=== PATIENT | female | born 1950 | race Caucasian/White ===

== ENCOUNTER 2018-07-23 16:36 | Emergency (ER) | payer MEDICARE, MEDICAID ==
--- OUTSIDE RECORDS SUMMARY | 2018-07-23 18:13 | XMS REPORT ---
:1950 External Reference #:[id number] Author Organization [facility] Address [address], [address] [place] [address] Phone [phone] Care Team Providers Name Role Phone Suha Ferrari M.D. Care Team Information Surface Grinder Unavailable Janay Galarza MD Primary Care Physician Unavailable Payers Type Date Identification Numbers Payment Provider Subscriber Medicare Primary Effective: Policy Number: Medicare Shirin Frankel 2018 [id number] PayID: [id number] [address] [place] [address] Medicare Primary Expires: 2018 Policy Number: [id number] Medicare Shirin Frankel PayID: [id number] [address] [place] [address] Medicaid Policy Number: [id number] Medicaid Shirin Frankel PayID: [id number] [address] [place] [address] Commercial Expires: 2016 Policy Number: [id number] [place] Shirin Frankel PayID: [id number] [address] [address] [place] [address] Problems Date Description Provider Status Onset: 06/11/2016 Benign essential hypertension Jad Blanco MD Active Onset: 07/30/2016 Abscess of lung Symone Ramirez M.D. Active Onset: 07/30/2016 Haemophilus influenzae infection Symone Ramirez M.D. Active Onset: 07/30/2016 Tobacco user Symone Ramirez M.D. Active Onset: 07/30/2016 Chronic obstructive lung disease Symone Ramirez M.D. Active Onset: 07/30/2016 Diarrhea Symone Ramirez M.D. Active Onset: 12/26/2016 Malignant neoplasm of lower lobe, Tracy Barnes DO Active bronchus or lung Onset: 12/26/2016 Substance abuse counseling Tracy Barnes DO Active Onset: 12/26/2016 Anxiety state Tracy Barnes DO Active Onset: 01/14/2017 Nausea and vomiting Tracy Barnes DO Active Onset: 01/14/2017 Pain in thoracic spine Tracy Barnes DO Active Onset: 01/14/2017 Chemotherapy-induced neutropenia Tracy Barnes DO Active Onset: 01/28/2017 Cough Tracy Barnes DO Active Onset: 02/04/2017 Anemia Tracy Barnes DO Active Onset: 02/04/2017 Pruritus of skin Tracy Barnes DO Active Onset: 02/25/2017 Acute upper respiratory infection, Tracy Barnes DO Active unspecified Onset: 03/14/2017 Dyspnea Tracy Barnes DO Active Onset: 04/04/2017 Anemia due to chemotherapy Tracy Barnes DO Active Onset: 04/04/2017 Joint effusion of ankle AND/OR foot Tracy Barnes DO Active Onset: 05/13/2017 Polyneuropathy due to drug Tracy Barnes DO Active Onset: 05/27/2017 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 Active Onset: 05/05/2018 Intercostal myalgia Symone Ramirez M.D. Active Onset: 05/15/2018 Secondary malignant neoplasm of bone Tracy Barnes DO Active Family History Date Family Member(s) Problem(s) Comments Father Choleosectomy Father due to No known family () history of CAD : (age 66 Father due to Liver Cancer Years) Mother Heart Disease First Brother Diabetes First Brother Lung Problems Grandmother Diabetes Grandmother Breast Cancer Social History Type Date Description Comments Marital Status Lives With Child Home Environment Lives With Daughter Diet Patient follows no dietary restrictions Occupation Disabled Work Status Unemployed ADL's/IADL's Independent with all ADL's Cigarette Use Patient is a current cigarette smoker, 40 plus years smokes every day Cigarette Use Current Cigarette Smoker 5-10 Cigarettes Daily ETOH Use Denies alcohol use Recreational Drug Use Never Used Drugs Smoking Light tobacco smoker (10 or fewer cigarettes/day) Daily Caffeine Consumes on average 1 pot of regular coffee per day Daily Caffeine Consumes on average 1 liter of soda per day Exercise Type/Frequency Exercises regularly Allergies, Adverse Reactions, Alerts Date Description Reaction Status Severity Comments 06/11/2016 Codeine active 06/11/2016 Cyclobenzaprine active 08/14/2016 Voriconazole blurred active Moderate to Severe vision,halucinations Medications Medication Date Status Form Strength Qnty SIG Indications Ordering Provider Oxycodone HCL 05/02 Active Tablets 10mg 30tab 1 tablet G89.3 s by mouth Tracy, every 6 DO hours as needed pain Valium 03/20 Active Tablets 10mg 1tabs take 1 F41.9 tablet by nito Borden 30 M.D. min prior to imaging Reference #: [id number] Vitamin D 03/16 Active Capsules 96243Znda 8caps 1 cap Po q , (Ergocalciferol) week Shalom Borden Blood Pressure 03/14 Active Misc 1unit check bp , Cuff s every Suha, daily M.D. until stable Tessalon Perles 01/28 Active Capsules 100mg 90cap 1 jimenez by R05 s mouth Tracy, three DO times a day as needed cough Itraconazole 01/07 Active Capsules 100mg 120ca 2 capsules B44.9 Mezu ps twice a Symone, day M.D. Commode Bedside 03/13 Active Misc 1unit for daily s use Tracy, dx:c34.32 DO Diphenoxylate-Atro 03/05 Active Tablets 2.5-0.025 60tab 1-2 R19.7 vanita mg s tablets by nito Hickman DO every 6 hours as needed diarrhea Ondansetron 01/14 Active Tablets 8mg 30tab 1 under R11.2 Dispers s the tongue Tracy, every 8 DO hours as needed nausea Pulmicort Active Aerosol 180mcg/Ac 2unit take once Vonda, Flexhaler /0000 t s puff twice Suha, daily. M.D. Ventolin HFA Active Aerosol 108(90Bas 36gm 1-2 puffs J44.9 Vonda, /0000 e) every 4-6 Suha, mcg/Act hours as M.D. needed Atorvastatin Active Tablets 40mg 90tab 1 by mouth Vonda, Calcium /0000 s every day Shalom Borden Albuterol Sulfate Active Nebulizer (2.5mg/3M 90ml nebulized Vonda, /0000 L) 0.083% every 6 Suha, hours as M.D. needed Anoro Ellipta Active Aerosol 62.5-25mc 60uni take one J44.9 Vonda, /0000 g/Inh ts puff once Suha, daily. M.D. Diltiazem HCL ER Active Caps ER 120mg 90cap by mouth Vonda, /0000 12HR s every day Shalom Borden Tussionex 01/28 Hx Suer 10-8mg/5M 115ml 1 teaspoon R05 Hernando Barneskine L by mouth Tracy, Extended Release - q12prn DO 01/29 cough Voriconazole 12/16 Hx Tablets 200mg 14tab 1 tablet B44.9 s po q 12hrs Tracy, - DO 01/13 Valium 08 Hx Tablets 10mg 2tabs take 1 F41.9 tablet by Tracy, - mouth 30 DO 04/10 min prior to cans Oxycodone HCL 11/19 Hx Capsules 5mg 90cap 1 tab by G89.3 Diana s mouth Tracy, - every 8 DO / hours Valium 30 Hx Tablets 10mg 1tabs take 1 tablet by Tracy, - mouth 30 DO 04/10 min prior to PET Tessalon Perles 09/30 Hx Capsules 100mg 90cap 1 jimenez by R05 Molly, s mouth Tracy, - three DO 01/29 times a day as needed cough Hydroxyzine HCL 09/30 Hx Tablets 25mg 60tab 1 tablet C34.32 Molly, s by mouth Tracy, - twice a DO 03/26 day for itching as needed Nicotine 07/09 Hx Patches 14mg/24HR 28uni 1 patch Td Vonda, Transdermal System 24HR ts Q24H Darin Borden M.D. 01/13 Multivitamin Women 06/28 Hx Tablets 50+ 90tab 1 tab PO Q Vonda, 50+ /2016 s daily Darin Borden M.D. 01/13 Lisinopril 06/28 Hx Tablets 5mg 90tab 1 by mouth I10 Vonda, s every day Darin Borden M.D. 06/26 Valium 06/17 Hx Tablets 10mg 1tabs take 1 tablet by Tracy, - mouth 30 DO 06/28 min prior to cans Oxycodone HCL 05/13 Hx Tablets 10mg 90tab 1 tablet M54.6 Molly, s by mouth Tracy, - every 8 DO 01/28 hours as needed pain Neurontin 05/13 Hx Capsules 100mg 120ca 1 tablet G62.0 vanita ps by mouth 3 Tracy, times a DO day Prednisone 03/21 Hx Tablets 20mg 30tab 3 by mouth R06.02 Molly, s every day Tracy, - DO 04/04 Oxycodone HCL 03/21 Hx Tablets 5mg 60tab 1 tablet M54.6 Molly, s by mouth Tracy, every 8 DO hours as needed pain Oxycodone HCL 03/14 Hx Tablets 5mg 90tab 1 tablet M54.6 Molly, s by mouth Tracy, - every 6 DO / hours as needed pain Prednisone 0525 Hx Tablets 20mg 30tab 3 by mouth D64.9 Molly, s every day Tracy, - DO 03/26 Prednisone 08 Hx Tablets 20mg 10tab 1 by mouth J06.9 Molly s every day Tracy - DO 03/07 Levaquin 02/25 Hx Tablets 500mg 7tabs 1 by mouth J06.9 Deandrepen every day Tracy, DO Oxycodone HCL 02/04 Hx Tablets 10mg 60tab 1 tablet M54.6 pen, s po q 6hrs Tracy, - prn pain DO 03/26 Hydroxychloroquine 02/04 Hx Tablets 200mg Every Six L29.8 Molly, Sulfate Hours as Tracy, Needed DO Hydroxyzine 02/04 Hx Capsules 25mg 90cap 1 tablet L29.8 Karpenhernandez, Pamoate s po q 6hrs Tracy, prn DO itching Lidocaine-Prilocai 01/30 Hx Cream 2.5-2.5% 90gm apply Boal, margaret Santos, - to DO 03/26[facility] [place] 01/28 Hx Capsules 100mg 90cap 1 jimenez PO R05 vanita s tid prn Tracy, cough DO Prochlorperazine 01/14 Hx Tablets 10mg 120ta 1 tablet R11.2 Molly, Male bs by mouth Tracy, every 6 DO hours as needed nausea Prochlorperazine 01/14 Hx Tablets 10mg 120ta 1 tablet R11.2 Deandrepenhernandez, Male bs by mouth Tracy, - every 6 DO 01/14 hours as needed nausea [place] 01/14 Hx Tablets 5-325mg 60tab 1 tab by M54.6 Diana, s mouth Tracy, every 6 DO hours as needed pain Valium 12/26 Hx Tablets 10mg 2tabs take 1 F41.9 tablet by Tracy, - mouth 30 DO 01/14 min prior to cans Nicotine 08/21 Hx Patches 14mg/24HR 28uni use one F17.210 [place]heti 24HR ts patch once MD Jad - daily. 12/26 Augmentin 10/10 Hx Tablets 875-125mg 56tab take one J85.1 Mezu, s tab by Symone, mouth M.D. every 12 hours x 28 days Voriconazole 07/30 Hx Tablets 200mg 64tab Take 2 J85.1 Me s tabs Symone, - (400mg) M.D. 08/14 PO q hours x 2 doses, then 200mg PO 12 hours every 12 hours x 4 weeks Augmentin 06/21 Hx Tablets 875-125mg 42tab Take 1 s tablet MD Jad twice daily for 21 days. Chantix Starting 06/21 Hx Tablets 0.5mg X 1tabs use as , 11 & 1 mg directed MD Jad X 42 Sputum 06/13 Hx Please D38.1 check MD Jad sputum afb smear/cult ure. Graim stain/cult ure, and viral culture. Lisinopril 00 Hx Tablets 10mg 1 by mouth Unknown /0000 every day Naproxen Hx Tablets 500mg 1 by mouth Unknown /0000 twice a - day with 01/14 food Tramadol HCL Hx Tablets 50mg 1 tablet Unknown /0000 every 6 - hours as 02/04 needed for pain Probiotic 00 Hx Capsules 1 cap by Unknown Acidophilus /0000 mouth daily Probiotic 0000 Hx Capsules 1 PO Daily Unknown /0000 Augmentin 00 Hx Tablets 875-125mg take one J85.1 Unknown /0000 tab by mouth every 12 hours x 28 days Hydrocortisone 00 Hx Cream 1% apply to Unknown /0000 affected - area twice 12/26 Hydroxyzine HCL Hx Tablets 25mg 1 po qd Unknown /0000 Magic Mouth Wash 0000 Hx Every 6 Unknown /0000 Hours Immunizations CPT Code Status Date Vaccine Lot # [id number] Given 06/28/2017 Influenza Vaccine Split Virus Preservative Free Im [id number] Use Vital Signs Date Vital Result Comment 06/26/2018 BP Systolic Sitting Left Arm 104 mmHg BP Diastolic Sitting Left Arm 80 mmHg Heart Rate 93 /min Respiratory Rate 14 /min Height 60 inches 5'0" Weight 102.00 lb BMI (Body Mass Index) 19.9 kg/m2 BSA (Body Surface Area) 1.40 m2 Haswell body weight in kilograms 45 O2 % BldC Oximetry 93 % 06/19/2018 BP Systolic Sitting Left Arm 125 mmHg BP Diastolic Sitting Left Arm 65 mmHg Heart Rate 95 /min Respiratory Rate 20 /min Height 60 inches 5'0" Weight 102.00 lb BMI (Body Mass Index) 19.9 kg/m2 BSA (Body Surface Area) 1.40 m2 Haswell body weight in kilograms 45 O2 % BldC Oximetry 96 % 06/16/2018 BP Systolic Sitting Left Arm 134 mmHg BP Diastolic Sitting Left Arm 89 mmHg Body Temperature 97.8 F Heart Rate 116 /min Weight 101.00 lb 06/10/2018 BP Systolic 150 mmHg BP Diastolic 84 mmHg Body Temperature 98.1 F Heart Rate 102 /min Respiratory Rate 16 /min Weight 103.50 lb O2 % BldC Oximetry 97 % Ra Pain Level 0 05/15/2018 BP Systolic 122 mmHg BP Diastolic 74 mmHg Body Temperature 98.7 F Heart Rate 93 /min Weight 104.12 lb O2 % BldC Oximetry 94 % Pain Level 3 Both sides of rib area 05/05/2018 BP Systolic Sitting Left Arm 130 mmHg BP Diastolic Sitting Left Arm 74 mmHg Body Temperature 99.1 F Heart Rate 90 /min Height 60 inches 5'0" Weight 105.00 lb BMI (Body Mass Index) 20.5 kg/m2 BSA (Body Surface Area) 1.42 m2 Haswell body weight in kilograms 45 05/02/2018 BP Systolic 130 mmHg BP Diastolic 82 mmHg Body Temperature 98.1 F Heart Rate 106 /min Weight 103.25 lb O2 % BldC Oximetry 96 % Pain Level 5 In rib area 03/26/2018 BP Systolic Sitting Right Arm 154 mmHg BP Diastolic Sitting Right Arm 82 mmHg Body Temperature 96.8 F Heart Rate 88 /min Weight 106.00 lb O2 % BldC Oximetry 97 % ra 03/14/2018 BP Systolic 146 mmHg BP Diastolic 74 mmHg Body Temperature 97.6 F Heart Rate 114 /min Weight 105.00 lb O2 % BldC Oximetry 93 % 02/27/2018 BP Systolic 157 mmHg BP Diastolic 95 mmHg Body Temperature 96.8 F Heart Rate 119 /min Weight 105.00 lb O2 % BldC Oximetry 96 % Pain Level 5 headache 02/19/2018 BP Systolic Sitting Right Arm 127 mmHg BP Diastolic Sitting Right Arm 89 mmHg Body Temperature 98.8 F Heart Rate 124 /min Height 60 inches 5'0" Weight 105.00 lb BMI (Body Mass Index) 20.5 kg/m2 BSA (Body Surface Area) 1.42 m2 Haswell body weight in kilograms 45 02/13/2018 BP Systolic Sitting Left Arm 118 mmHg BP Diastolic Sitting Left Arm 73 mmHg Heart Rate 108 /min Respiratory Rate 24 /min Weight 104.00 lb O2 % BldC Oximetry 93 % 01/28/2018 BP Systolic 147 mmHg BP Diastolic 87 mmHg Body Temperature 97.4 F Heart Rate 97 /min Respiratory Rate 18 /min Weight 106.50 lb O2 % BldC Oximetry 95 % 01/13/2018 BP Systolic Lying Down Resting Right Arm 116 mmHg BP Diastolic Lying Down Resting Right Arm 76 mmHg Body Temperature 97.6 F Heart Rate 80 /min Respiratory Rate 24 /min Height 60 inches 5'0" Weight 105.50 lb BMI (Body Mass Index) 20.6 kg/m2 BSA (Body Surface Area) 1.42 m2 Haswell body weight in kilograms 45 O2 % BldC Oximetry 95 % Ra Pain Level 4 01/07/2018 BP Systolic 124 mmHg BP Diastolic 79 mmHg Body Temperature 97.2 F Heart Rate 126 /min Respiratory Rate 18 /min Weight 106.00 lb O2 % BldC Oximetry 94 % 12/16/2017 BP Systolic 132 mmHg BP Diastolic 71 mmHg Body Temperature 97.2 F Heart Rate 103 /min Weight 106.00 lb O2 % BldC Oximetry 95 % 11/28/2017 BP Systolic 131 mmHg BP Diastolic 76 mmHg Body Temperature 97.8 F Heart Rate 117 /min Weight 107.12 lb O2 % BldC Oximetry 94 % 11/19/2017 BP Systolic 141 mmHg BP Diastolic 91 mmHg Body Temperature 97.8 F Heart Rate 116 /min Weight 106.12 lb O2 % BldC Oximetry 96 % 09/30/2017 BP Systolic 138 mmHg BP Diastolic 77 mmHg Body Temperature 98.0 F Heart Rate 121 /min Weight 106.50 lb O2 % BldC Oximetry 93 % 08/28/2017 BP Systolic Sitting Left Arm 116 mmHg BP Diastolic Sitting Left Arm 68 mmHg Height 60 inches 5'0" Weight 107.00 lb BMI (Body Mass Index) 20.9 kg/m2 BSA (Body Surface Area) 1.43 m2 Haswell body weight in kilograms 45 08/05/2017 BP Systolic Sitting Left Arm 118 mmHg BP Diastolic Sitting Left Arm 82 mmHg Heart Rate 106 /min Respiratory Rate 18 /min Weight 106.00 lb O2 % BldC Oximetry 96 % 07/01/2017 BP Systolic 160 mmHg BP Diastolic 93 mmHg Body Temperature 97.1 F Heart Rate 117 /min Weight 108.00 lb O2 % BldC Oximetry 96 % 06/28/2017 BP Systolic 152 mmHg BP Diastolic 92 mmHg Body Temperature 97.1 F Heart Rate 109 /min Weight 107.00 lb O2 % BldC Oximetry 90 % Pain Level 5 06/17/2017 BP Systolic Sitting Right Arm 141 mmHg BP Diastolic Sitting Right Arm 79 mmHg Body Temperature 98.0 F Heart Rate 126 /min Weight 101.00 lb O2 % BldC Oximetry 93 % 06/04/2017 BP Systolic 132 mmHg BP Diastolic 85 mmHg Body Temperature 98.9 F Heart Rate 118 /min Respiratory Rate 21 /min Weight 108.50 lb O2 % BldC Oximetry 95 % Pain Level 4 Both Legs 05/28/2017 BP Systolic 148 mmHg BP Diastolic 87 mmHg Body Temperature 97.6 F Heart Rate 105 /min Respiratory Rate 22 /min Weight 111.50 lb O2 % BldC Oximetry 95 % Pain Level 0 05/27/2017 BP Systolic 151 mmHg BP Diastolic 90 mmHg Body Temperature 96.4 F Heart Rate 126 /min Weight 113.25 lb O2 % BldC Oximetry 92 % 05/13/2017 BP Systolic 142 mmHg BP Diastolic 86 mmHg Body Temperature 98.4 F Heart Rate 71 /min Weight 110.25 lb O2 % BldC Oximetry 95 % 05/07/2017 BP Systolic 139 mmHg BP Diastolic 84 mmHg Body Temperature 98.0 F Heart Rate 104 /min Respiratory Rate 18 /min O2 % BldC Oximetry 96 % Pain Level 0 05/06/2017 BP Systolic 154 mmHg BP Diastolic 97 mmHg Body Temperature 96.4 F Heart Rate 117 /min Weight 107.50 lb O2 % BldC Oximetry 94 % 04/24/2017 BP Systolic Sitting Left Arm 148 mmHg BP Diastolic Sitting Left Arm 96 mmHg Height 60 inches 5'0" Weight 109.50 lb BMI (Body Mass Index) 21.4 kg/m2 BSA (Body Surface Area) 1.44 m2 Haswell body weight in kilograms 45 O2 % BldC Oximetry 99 % 04/18/2017 BP Systolic 138 mmHg BP Diastolic 90 mmHg Body Temperature 97.6 F Heart Rate 114 /min Weight 111.50 lb O2 % BldC Oximetry 96 % 04/04/2017 BP Systolic 144 mmHg BP Diastolic 76 mmHg Body Temperature 96.9 F Heart Rate 118 /min Weight 114.25 lb O2 % BldC Oximetry 95 % 03/28/2017 BP Systolic Sitting Left Arm 145 mmHg BP Diastolic Sitting Left Arm 100 mmHg Heart Rate 128 /min Respiratory Rate 24 /min Weight 114.00 lb 03/21/2017 BP Systolic 164 mmHg BP Diastolic 95 mmHg Body Temperature 97.5 F Heart Rate 105 /min Weight 117.12 lb O2 % BldC Oximetry 90 % 03/14/2017 BP Systolic 147 mmHg BP Diastolic 90 mmHg Body Temperature 99.2 F Heart Rate 132 /min Weight 117.00 lb O2 % BldC Oximetry 91 % 03/07/2017 BP Systolic 141 mmHg BP Diastolic 69 mmHg Body Temperature 98.8 F Heart Rate 109 /min Respiratory Rate 22 /min Weight 120.50 lb O2 % BldC Oximetry 94 % Pain Level 0 03/05/2017 BP Systolic Sitting Right Arm 133 mmHg BP Diastolic Sitting Right Arm 78 mmHg Body Temperature 98.5 F Heart Rate 118 /min Respiratory Rate 14 /min Weight 120.00 lb O2 % BldC Oximetry 96 % 02/28/2017 BP Systolic 133 mmHg BP Diastolic 94 mmHg Body Temperature 97.9 F Heart Rate 99 /min Respiratory Rate 19 /min Weight 119.50 lb O2 % BldC Oximetry 96 % Pain Level 2 Ribs-RT Side 02/25/2017 BP Systolic Sitting Left Arm 128 mmHg BP Diastolic Sitting Left Arm 81 mmHg Body Temperature 98.6 F Heart Rate 115 /min Respiratory Rate 16 /min Height 60 inches 5'0" Weight 120.00 lb BMI (Body Mass Index) 23.4 kg/m2 BSA (Body Surface Area) 1.50 m2 Haswell body weight in kilograms 45 O2 % BldC Oximetry 96 % 02/20/2017 BP Systolic 126 mmHg BP Diastolic 50 mmHg Body Temperature 97.7 F Heart Rate 101 /min Respiratory Rate 18 /min Weight 121.00 lb O2 % BldC Oximetry 94 % Pain Level 0 02/19/2017 BP Systolic Sitting Right Arm 93 mmHg BP Diastolic Sitting Right Arm 56 mmHg Body Temperature 97.9 F Heart Rate 104 /min Respiratory Rate 16 /min Weight 122.00 lb O2 % BldC Oximetry 96 % 02/13/2017 BP Systolic 109 mmHg BP Diastolic 67 mmHg Body Temperature 98.6 F Heart Rate 103 /min Respiratory Rate 19 /min Weight 120.38 lb O2 % BldC Oximetry 94 % Pain Level 0 02/11/2017 BP Systolic 127 mmHg BP Diastolic 73 mmHg Body Temperature 97.4 F Heart Rate 101 /min Weight 121.25 lb O2 % BldC Oximetry 97 % 02/06/2017 BP Systolic 103 mmHg BP Diastolic 70 mmHg Body Temperature 98.8 F Heart Rate 91 /min Respiratory Rate 20 /min Weight 121.12 lb O2 % BldC Oximetry 96 % Pain Level 0 02/04/2017 BP Systolic 133 mmHg BP Diastolic 78 mmHg Body Temperature 97.2 F Heart Rate 117 /min Weight 122.12 lb O2 % BldC Oximetry 96 % 01/31/2017 BP Systolic Sitting Right Arm 126 mmHg BP Diastolic Sitting Right Arm 60 mmHg Heart Rate 108 /min Respiratory Rate 18 /min Height 60 inches 5'0" Weight 122.00 lb BMI (Body Mass Index) 23.8 kg/m2 BSA (Body Surface Area) 1.51 m2 Haswell body weight in kilograms 45 O2 % BldC Oximetry 97 % Room air 01/30/2017 BP Systolic 116 mmHg BP Diastolic 63 mmHg Body Temperature 97.7 F Heart Rate 107 /min Respiratory Rate 22 /min Weight 120.50 lb O2 % BldC Oximetry 94 % Pain Level 4 01/28/2017 BP Systolic 127 mmHg BP Diastolic 75 mmHg Body Temperature 97.5 F Heart Rate 131 /min Weight 120.50 lb O2 % BldC Oximetry 96 % 01/23/2017 BP Systolic 130 mmHg BP Diastolic 87 mmHg Body Temperature 98.1 F Heart Rate 85 /min Respiratory Rate 20 /min Height 60 inches 5'0" Weight 122.38 lb BMI (Body Mass Index) 23.9 kg/m2 BSA (Body Surface Area) 1.51 m2 Haswell body weight in kilograms 45 O2 % BldC Oximetry 97 % Pain Level 4 Arthritis 01/21/2017 BP Systolic 121 mmHg BP Diastolic 83 mmHg Body Temperature 97.8 F Heart Rate 102 /min Weight 122.12 lb O2 % BldC Oximetry 96 % 01/16/2017 BP Systolic 112 mmHg BP Diastolic 78 mmHg Body Temperature 97.3 F Height 60 inches 5'0" Weight 122.00 lb BMI (Body Mass Index) 23.8 kg/m2 BSA (Body Surface Area) 1.51 m2 Haswell body weight in kilograms 45 01/14/2017 BP Systolic 143 mmHg BP Diastolic 85 mmHg Body Temperature 97.6 F Heart Rate 96 /min Weight 124.38 lb O2 % BldC Oximetry 95 % 12/26/2016 BP Systolic Sitting Left Arm 122 mmHg BP Diastolic Sitting Left Arm 72 mmHg Heart Rate 110 /min Respiratory Rate 16 /min Height 56 inches 4'8" Weight 124.00 lb BMI (Body Mass Index) 27.8 kg/m2 BSA (Body Surface Area) 1.45 m2 Haswell body weight in kilograms 45 O2 % BldC Oximetry 95 % room air 12/26/2016 BP Systolic 134 mmHg BP Diastolic 86 mmHg Body Temperature 98.5 F Heart Rate 95 /min Respiratory Rate 18 /min Weight 122.25 lb O2 % BldC Oximetry 95 % Pain Level 4 RT Sided Pain Between Armpit And Hip 12/25/2016 Height 60.5 inches 5'0.50" Weight 123.00 lb BMI (Body Mass Index) 23.6 kg/m2 BSA (Body Surface Area) 1.53 m2 Haswell body weight in kilograms 47 09/20/2016 BP Systolic Sitting Left Arm 102 mmHg BP Diastolic Sitting Left Arm 62 mmHg Heart Rate 102 /min Respiratory Rate 16 /min Height 60 inches 5'0" Weight 123.00 lb BMI (Body Mass Index) 24.0 kg/m2 BSA (Body Surface Area) 1.52 m2 09/04/2016 BP Systolic Sitting Left Arm 122 mmHg BP Diastolic Sitting Left Arm 70 mmHg Heart Rate 93 /min Respiratory Rate 16 /min Height 60 inches 5'0" Weight 123.00 lb BMI (Body Mass Index) 24.0 kg/m2 BSA (Body Surface Area) 1.52 m2 08/21/2016 BP Systolic Sitting Left Arm 120 mmHg BP Diastolic Sitting Left Arm 76 mmHg Heart Rate 92 /min Respiratory Rate 18 /min Height 60 inches 5'0" Weight 121.00 lb BMI (Body Mass Index) 23.6 kg/m2 BSA (Body Surface Area) 1.51 m2 O2 % BldC Oximetry 95 % 07/31/2016 BP Systolic Sitting Right Arm 148 mmHg BP Diastolic Sitting Right Arm 80 mmHg Heart Rate 95 /min Respiratory Rate 18 /min Height 60 inches 5'0" Weight 119.00 lb BMI (Body Mass Index) 23.2 kg/m2 BSA (Body Surface Area) 1.50 m2 07/30/2016 BP Systolic Sitting Left Arm 128 mmHg BP Diastolic Sitting Left Arm 80 mmHg Body Temperature 99.3 F Heart Rate 113 /min Height 60 inches 5'0" Weight 121.00 lb BMI (Body Mass Index) 23.6 kg/m2 BSA (Body Surface Area) 1.51 m2 O2 % BldC Oximetry 95 % Ra 07/19/2016 BP Systolic Sitting Right Arm 130 mmHg BP Diastolic Sitting Right Arm 80 mmHg Heart Rate 105 /min Respiratory Rate 18 /min Height 60 inches 5'0" Weight 124.00 lb BMI (Body Mass Index) 24.2 kg/m2 BSA (Body Surface Area) 1.52 m2 O2 % BldC Oximetry 93 % 07/17/2016 BP Systolic Sitting Left Arm 138 mmHg BP Diastolic Sitting Left Arm 82 mmHg Heart Rate 99 /min Respiratory Rate 20 /min Height 60 inches 5'0" Weight 123.00 lb BMI (Body Mass Index) 24.0 kg/m2 BSA (Body Surface Area) 1.52 m2 06/13/2016 BP Systolic Sitting Right Arm 120 mmHg BP Diastolic Sitting Right Arm 70 mmHg Heart Rate 109 /min Height 60 inches 5'0" Weight 125.00 lb BMI (Body Mass Index) 24.4 kg/m2 BSA (Body Surface Area) 1.53 m2 Haswell body weight in kilograms 45 O2 % BldC Oximetry 96 % Results Test Date Test Result H/L Range Note Xray 05/15/2018 Ribs, Bilateral; Min. 3 <pending> Views CBS W/Automated Diff 05/15/2018 White Blood Count 7.5 K/uL 3.1-10.7 1 Red Blood Count 3.88 M/uL Low 3.90-5.40 1 Hemoglobin 12.2 gm/dL 11.6-15.8 1 Hematocrit 37.5 % 36.0-46.1 1 Mean Cell Volume 96.6 fl 80.9-99.0 1 Mean Corpuscular HGB 31.4 pg 25.9-32.7 1 Mean Corpuscular HGB Conc 32.5 g/dL 30.8-34.3 1 Platelet Count 291 K/uL 155-360 1 Red Cell Distri Width SD 50.6 fl High 3-47 1 Red Cell Distri Width %CV 14.6 % High 11.7-14.4 1 Mean Platelet Volume 10.6 fL 8.9-12.4 1 Neut% 73.3 % High 40.4-72.8 1 Lymph % 13.0 % Low 20.0-42.0 1 Sunflower % 11.1 % 4.3-13.2 1 Eo% 2.1 % 0.0-6.6 1 Bas% 0.5 % 0.0-1.1 1 Neut# 5.50 K/uL 1.8-7.0 1 Lymph # 0.98 K/uL Low 1.0-4.0 1 Sunflower # 0.83 K/uL 0.3-0.9 1 Eos # 0.16 K/uL 0.0-0.5 1 Baso # 0.04 K/uL 0.0-0.1 1 Comprehensive Metabolic Panel 05/15/2018 Glucose 127 mg/dL High 74-106 1 BUN 11 mg/dL 7-18 1 Creatinine 0.8 mg/dL 0.6-1.3 1 Glom Filtration Rate, Estimate >60 mL/min >60 1 If >60 mL/min >60 1, 2 BUN/Creat 13.7 ratio 1 Sodium 138 mmol/L 136-145 1 Potassium 3.6 mmol/L 3.5-5.1 1 Chloride 103 mmol/L 98-107 1 Carbon Dioxide 26 mmol/L 21-32 1 Anion Gap 9 mEq/L 8-16 1 Calcium 9.0 mg/dL 8.5-10.1 1 Total Protein 7.5 g/dL 6.4-8.2 1 Albumin 3.6 g/dL 3.4-5.0 1 Globulin 3.9 g/dL 1.9-4.3 1 Alb/Glob 0.9 ratio 1 Bilirubin,Total 0.4 mg/dL 0.2-1.0 1 Sgot/Ast 15 U/L 15-37 1 SGPT/Alt 21 U/L 12-78 1 Alkaline Phosphatase 131 U/L High 45-117 1 CBS W/Automated Diff 05/02/2018 White Blood Count 8.4 K/uL 3.1-10.7 3 Red Blood Count 4.37 M/uL 3.90-5.40 3 Hemoglobin 14.0 gm/dL 11.6-15.8 3 Hematocrit 41.5 % 36.0-46.1 3 Mean Cell Volume 95.0 fl 80.9-99.0 3 Mean Corpuscular HGB 32.0 pg 25.9-32.7 3 Mean Corpuscular HGB Conc 33.7 g/dL 30.8-34.3 3 Platelet Count 334 K/uL 155-360 3 Red Cell Distri Width SD 49.6 fl High 3-47 3 Red Cell Distri Width %CV 14.5 % High 11.7-14.4 3 Mean Platelet Volume 10.0 fL 8.9-12.4 3 Neut% 73.0 % High 40.4-72.8 3 Lymph % 14.1 % Low 20.0-42.0 3 Sunflower % 10.0 % 4.3-13.2 3 Eo% 2.3 % 0.0-6.6 3 Bas% 0.6 % 0.0-1.1 3 Neut# 6.13 K/uL 1.8-7.0 3 Lymph # 1.18 K/uL 1.0-4.0 3 Sunflower # 0.84 K/uL 0.3-0.9 3 Eos # 0.19 K/uL 0.0-0.5 3 Baso # 0.05 K/uL 0.0-0.1 3 Comprehensive Metabolic Panel 05/02/2018 Glucose 129 mg/dL High 74-106 3 BUN 14 mg/dL 7-18 3 Creatinine 0.7 mg/dL 0.6-1.3 3 Glom Filtration Rate, Estimate >60 mL/min >60 3 If >60 mL/min >60 3, 4 BUN/Creat 20.0 ratio 3 Sodium 138 mmol/L 136-145 3 Potassium 3.8 mmol/L 3.5-5.1 3 Chloride 104 mmol/L 98-107 3 Carbon Dioxide 26 mmol/L 21-32 3 Anion Gap 8 mEq/L 8-16 3 Calcium 9.6 mg/dL 8.5-10.1 3 Total Protein 8.0 g/dL 6.4-8.2 3 Albumin 3.9 g/dL 3.4-5.0 3 Globulin 4.1 g/dL 1.9-4.3 3 Alb/Glob 1.0 ratio 3 Bilirubin,Total 0.4 mg/dL 0.2-1.0 3 Sgot/Ast 19 U/L 15-37 3 SGPT/Alt 19 U/L 12-78 3 Alkaline Phosphatase 140 U/L High 45-117 3 Laboratory test 05/02/2018 C-Reactive < 2.9 mg/L <3.0 3 finding Protein,Quant Laboratory test 03/14/2018 Itraconazole, <pending> finding Serum/Plasma Laboratory test 03/14/2018 Vitamin D,25-Hydroxy 14.8 ng/mL Low 30.0-100.0 5, 6 finding LDL Cholesterol 03/14/2018 Cholesterol 181 mg/dL <200 5, 7 Profile Triglycerides 108 mg/dL <150 5, 8 HDL Cholesterol 62 mg/dL >40 5, 9 LDL-Cholesterol 97 mg/dL < 100 5, 10 Xray 02/25/2018 CT, Chest, With <pending> Contrast Materials Comprehensive Metabolic 02/20/2018 Glucose 112 mg/dL High 74-106 11 Panel BUN 12 mg/dL 7-18 11 Creatinine 0.7 mg/dL 0.6-1.3 11 Glom Filtration Rate, Estimate >60 mL/min >60 11 If >60 mL/min >60 11, 12 BUN/Creat 17.1 ratio 11 Sodium 139 mmol/L 136-145 11 Potassium 3.6 mmol/L 3.5-5.1 11 Chloride 104 mmol/L 98-107 11 Carbon Dioxide 29 mmol/L 21-32 11 Anion Gap 6 mEq/L Low 8-16 11 Calcium 9.3 mg/dL 8.5-10.1 11 Total Protein 7.4 g/dL 6.4-8.2 11 Albumin 3.5 g/dL 3.4-5.0 11 Globulin 3.9 g/dL 1.9-4.3 11 Alb/Glob 0.9 ratio 11 Bilirubin,Total 0.5 mg/dL 0.2-1.0 11 Sgot/Ast 18 U/L 15-37 11 SGPT/Alt 13 U/L 12-78 11 Alkaline Phosphatase 157 U/L High 45-117 11 Blood Culture 02/20/2018 Blood Culture Aerobic NO GROWTH: FINAL <SEE NOTE> 11, 13 Blood Culture Anaerobic NO GROWTH: FINAL <SEE NOTE> 11, 14 Fungal Culture 02/19/2018 Fungal Fluorochrome MANDIE/Calcofluor p <SEE 15 , 16 With Smear Stain NOTE> Fungal Culture; Other Sources Rina dublinie <SEE NOTE> 15, 17 Respiratory Culture W/Gram 02/19/2018 Gram Stain <10 SQUAMOUS EPI <SEE 15, 18 St NOTE> Gram Stain <25 WBC/LPF 15 Gram Stain MODERATE GRAM NE <SEE NOTE> 15, 19 Gram Stain FEW GRAM POSITIV <SEE NOTE> 15, 20 Gram Stain RARE GRAM NEGATI <SEE NOTE> 15, 21 Gram Stain RARE GRAM POS BA <SEE NOTE> 15, 22 Respiratory Culture RESPIRATORY LÁZARO <SEE NOTE> 15, 23 Laboratory test finding 02/13/2018 Itraconazole, <pending> Serum/Plasma Comprehensive Metabolic 02/13/2018 Glucose 147 mg/dL High 74-106 15 Panel BUN 9 mg/dL 7-18 15 Creatinine 0.6 mg/dL 0.6-1.3 15 Glom Filtration Rate, Estimate >60 mL/min >60 15 If >60 mL/min >60 15, 24 BUN/Creat 15.0 ratio 15 Sodium 138 mmol/L 136-145 15 Potassium 3.6 mmol/L 3.5-5.1 15 Chloride 102 mmol/L 98-107 15 Carbon Dioxide 30 mmol/L 21-32 15 Anion Gap 6 mEq/L Low 8-16 15 Calcium 10.0 mg/dL 8.5-10.1 15 Total Protein 8.1 g/dL 6.4-8.2 15 Albumin 3.7 g/dL 3.4-5.0 15 Globulin 4.4 g/dL High 1.9-4.3 15 Alb/Glob 0.8 ratio 15 Bilirubin,Total 0.6 mg/dL 0.2-1.0 15 Sgot/Ast 17 U/L 15-37 15 SGPT/Alt 14 U/L 12-78 15 Alkaline Phosphatase 179 U/L High 45-117 15 Laboratory test finding 01/29/2018 Itraconazole, <pending> Serum/Plasma Comprehensive Metabolic 01/29/2018 Glucose 101 mg/dL 74-106 15 Panel BUN 10 mg/dL 7-18 15 Creatinine 0.6 mg/dL 0.6-1.3 15 Glom Filtration Rate, Estimate >60 mL/min >60 15 If >60 mL/min >60 15, 25 BUN/Creat 16.6 ratio 15 Sodium 140 mmol/L 136-145 15 Potassium 3.8 mmol/L 3.5-5.1 15 Chloride 106 mmol/L 98-107 15 Carbon Dioxide 28 mmol/L 21-32 15 Anion Gap 6 mEq/L Low 8-16 15 Calcium 9.6 mg/dL 8.5-10.1 15 Total Protein 7.5 g/dL 6.4-8.2 15 Albumin 3.8 g/dL 3.4-5.0 15 Globulin 3.7 g/dL 1.9-4.3 15 Alb/Glob 1.0 ratio 15 Bilirubin,Total 0.5 mg/dL 0.2-1.0 15 Sgot/Ast 17 U/L 15-37 15 SGPT/Alt 12 U/L 12-78 15 Alkaline Phosphatase 129 U/L High 45-117 15 Iron-Tibc-%Sat 01/07/2018 Serum Iron 101 g/dL 50-170 26 Total Iron Binding Capacity 422 g/dL 250-450 26 Transferrin %Saturation 24 % 12-57 26 Vitamin B12 And Folate 01/07/2018 Vitamin B12 214 pg/mL 193-986 26 Folic Acid 6.2 ng/mL 3.1-17.5 26 CBS W/Automated Diff 01/07/2018 White Blood Count 7.6 K/uL 3.1-10.7 26 Red Blood Count 4.11 M/uL 3.90-5.40 26 Hemoglobin 13.0 gm/dL 11.6-15.8 26 Hematocrit 39.4 % 36.0-46.1 26 Mean Cell Volume 95.9 fl 80.9-99.0 26 Mean Corpuscular HGB 31.6 pg 25.9-32.7 26 Mean Corpuscular HGB Conc 33.0 g/dL 30.8-34.3 26 Platelet Count 293 K/uL 155-360 26 Red Cell Distri Width SD 47.3 fl High 3-47 26 Red Cell Distri Width %CV 13.8 % 11.7-14.4 26 Mean Platelet Volume 10.5 fL 8.9-12.4 26 Neut% 74.0 % High 40.4-72.8 26 Lymph % 13.7 % Low 20.0-42.0 26 Sunflower % 10.3 % 4.3-13.2 26 Eo% 1.5 % 0.0-6.6 26 Bas% 0.5 % 0.0-1.1 26 Neut# 5.61 K/uL 1.8-7.0 26 Lymph # 1.04 K/uL 1.0-4.0 26 Sunflower # 0.78 K/uL 0.3-0.9 26 Eos # 0.11 K/uL 0.0-0.5 26 Baso # 0.04 K/uL 0.0-0.1 26 Xray 12/05/2017 CT, Guided Biopsy <pending> Act Partial Thrombo 12/04/2017 Act Partial Thrombo 56.4 seconds High 23.4- 35.0 27 Time Time Anticoagulant Therapy? Unknown 27 Protime 12/04/2017 Protime 14.5 seconds High 12.0-14.4 27 Inr 1.1 0.9-1.1 27, 28 Anticoagulant Therapy? Unknown 27 CBS W/Automated Diff 11/19/2017 White Blood Count 9.7 K/uL 3.1-10.7 29 Red Blood Count 4.19 M/uL 3.90-5.40 29 Hemoglobin 13.4 gm/dL 11.6-15.8 29 Hematocrit 40.7 % 36.0-46.1 29 Mean Cell Volume 97.1 fl 80.9-99.0 29 Mean Corpuscular HGB 32.0 pg 25.9-32.7 29 Mean Corpuscular HGB Conc 32.9 g/dL 30.8-34.3 29 Platelet Count 332 K/uL 155-360 29 Red Cell Distri Width SD 47.4 fl High 3-47 29 Red Cell Distri Width %CV 13.7 % 11.7-14.4 29 Mean Platelet Volume 10.3 fL 8.9-12.4 29 Neut% 74.8 % High 40.4-72.8 29 Lymph % 12.7 % Low 20.0-42.0 29 Sunflower % 9.4 % 4.3-13.2 29 Eo% 2.7 % 0.0-6.6 29 Bas% 0.4 % 0.0-1.1 29 Neut# 7.21 K/uL High 1.8-7.0 29 Lymph # 1.23 K/uL 1.0-4.0 29 Sunflower # 0.91 K/uL High 0.3-0.9 29 Eos # 0.26 K/uL 0.0-0.5 29 Baso # 0.04 K/uL 0.0-0.1 29 Iron-Tibc-%Sat 11/19/2017 Serum Iron 66 g/dL 50-170 29 Total Iron Binding Capacity 394 g/dL 250-450 29 Transferrin %Saturation 17 % 12-57 29 Reticulocyte Count,Automated 11/19/2017 Retic % 0.9 % 0.5-1.8 29 Vitamin B12 And Folate 11/19/2017 Vitamin B12 200 pg/mL 193-986 29 Folic Acid 5.2 ng/mL 3.1-17.5 29 Laboratory test finding 11/19/2017 Ferritin 81 ng/mL 8-252 29 Slide Review 11/19/2017 Slide Review . 29, 30 Comprehensive Metabolic Panel 09/30/2017 Glucose 135 mg/dL High 74-106 31 BUN 12 mg/dL 7-18 31 Creatinine 0.7 mg/dL 0.6-1.3 31 Glom Filtration Rate, Estimate >60 mL/min >60 31 If >60 mL/min >60 31, 32 BUN/Creat 17.1 ratio 31 Sodium 137 mmol/L 136-145 31 Potassium 3.7 mmol/L 3.5-5.1 31 Chloride 103 mmol/L 98-107 31 Carbon Dioxide 28 mmol/L 21-32 31 Anion Gap 6 mEq/L Low 8-16 31 Calcium 9.7 mg/dL 8.5-10.1 31 Total Protein 7.4 g/dL 6.4-8.2 31 Albumin 3.5 g/dL 3.4-5.0 31 Globulin 3.9 g/dL 1.9-4.3 31 Alb/Glob 0.9 ratio 31 Bilirubin,Total 0.3 mg/dL 0.2-1.0 31 Sgot/Ast 16 U/L 15-37 31 SGPT/Alt 15 U/L 12-78 31 Alkaline Phosphatase 158 U/L High 45-117 31 CBS W/Automated Diff 09/05/2017 White Blood Count 6.7 K/uL 3.1-10.7 33 Red Blood Count 3.88 M/uL Low 3.90-5.40 33 Hemoglobin 12.6 gm/dL 11.6-15.8 33 Hematocrit 37.6 % 36.0-46.1 33 Mean Cell Volume 96.9 fl 80.9-99.0 33 Mean Corpuscular HGB 32.5 pg 25.9-32.7 33 Mean Corpuscular HGB Conc 33.5 g/dL 30.8-34.3 33 Platelet Count 312 K/uL 150-400 33 Red Cell Distri Width SD 46.9 fl 3-47 33 Red Cell Distri Width %CV 13.4 % 11.7-14.4 33 Mean Platelet Volume 10.3 fL 8.9-12.4 33 Neut% 67.2 % 40.4-72.8 33 Lymph % 16.7 % Low 20.0-42.0 33 Sunflower % 13.5 % High 4.3-13.2 33 Eo% 2.2 % 0.0-6.6 33 Bas% 0.4 % 0.0-1.1 33 Neut# 4.49 K/uL 1.8-7.0 33 Lymph # 1.12 K/uL 1.0-4.0 33 Sunflower # 0.90 K/uL 0.3-0.9 33 Eos # 0.15 K/uL 0.0-0.5 33 Baso # 0.03 K/uL 0.0-0.1 33 Comprehensive Metabolic Panel 09/05/2017 Glucose 109 mg/dL High 74-106 33 BUN 18 mg/dL 7-18 33 Creatinine 0.6 mg/dL 0.6-1.3 33 Glom Filtration Rate, Estimate >60 mL/min >60 33 If >60 mL/min >60 33, 34 BUN/Creat 30.0 ratio 33 Sodium 137 mmol/L 136-145 33 Potassium 3.7 mmol/L 3.5-5.1 33 Chloride 104 mmol/L 98-107 33 Carbon Dioxide 25 mmol/L 21-32 33 Anion Gap 8 mEq/L 8-16 33 Calcium 10.3 mg/dL High 8.5-10.1 33 Total Protein 7.7 g/dL 6.4-8.2 33 Albumin 3.8 g/dL 3.4-5.0 33 Globulin 3.9 g/dL 1.9-4.3 33 Alb/Glob 1.0 ratio 33 Bilirubin,Total 0.5 mg/dL 0.2-1.0 33 Sgot/Ast 18 U/L 15-37 33 SGPT/Alt 17 U/L 12-78 33 Alkaline Phosphatase 123 U/L High 45-117 33 Iron-Tibc-%Sat 09/05/2017 Serum Iron 94 g/dL 50-170 33 Total Iron Binding Capacity 375 g/dL 250-450 33 Transferrin %Saturation 25 % 12-57 33 Laboratory test finding 09/05/2017 Magnesium 1.7 mg/dL Low 1.8-2.4 33 Basic Metabolic Panel 08/28/2017 Glucose 98 mg/dL 74-106 35 BUN 14 mg/dL 7-18 35 Creatinine 0.8 mg/dL 0.6-1.3 35 Glom Filtration Rate, Estimate >60 mL/min >60 35 If >60 mL/min >60 35, 36 BUN/Creat 17.5 ratio 35 Sodium 138 mmol/L 136-145 35 Potassium 4.0 mmol/L 3.5-5.1 35 Chloride 104 mmol/L 98-107 35 Carbon Dioxide 26 mmol/L 21-32 35 Anion Gap 8 mEq/L 8-16 35 Calcium 9.9 mg/dL 8.5-10.1 35 LDL Cholesterol Profile 06/28/2017 Cholesterol 200 mg/dL <200 37, 38 Triglycerides 106 mg/dL <150 37, 39 HDL Cholesterol 60 mg/dL >40 37, 40 LDL-Cholesterol 119 mg/dL < 100 37, 41 Reflex add FT3? Y 37 Reflex add FT4? Y 37 TSH Reflex FT4 And/Or FT3 06/28/2017 Thyroid Stim Hormone 0.71 uIU/mL 0.30-4.20 37 Reflex add FT3? Y 37 Reflex add FT4? Y 37 Laboratory test 06/28/2017 Hepatitis C Antibody < 0.1 s/corat 0.0-0.9 37 , 42 finding CBS W/Automated Diff 06/17/2017 White Blood Count 7.3 K/uL 3.1-10.7 43 Red Blood Count 4.04 M/uL 3.90-5.40 43 Hemoglobin 13.2 gm/dL 11.6-15.8 43 Hematocrit 40.4 % 36.0-46.1 43 Mean Cell Volume 100.0 fl High 80.9-99.0 43 Mean Corpuscular HGB 32.7 pg 25.9-32.7 43 Mean Corpuscular HGB Conc 32.7 g/dL 30.8-34.3 43 Platelet Count 227 K/uL 150-400 43 Red Cell Distri Width SD 52.1 fl High 3-47 43 Red Cell Distri Width %CV 14.6 % High 11.7-14.4 43 Mean Platelet Volume 10.9 fL 8.9-12.4 43 Neut% 72.2 % 40.4-72.8 43 Lymph % 13.3 % Low 20.0-42.0 43 Sunflower % 13.0 % 4.3-13.2 43 Eo% 0.7 % 0.0-6.6 43 Bas% 0.8 % 0.0-1.1 43 Neut# 5.25 K/uL 1.8-7.0 43 Lymph # 0.97 K/uL Low 1.0-4.0 43 Sunflower # 0.95 K/uL High 0.3-0.9 43 Eos # 0.05 K/uL 0.0-0.5 43 Baso # 0.06 K/uL 0.0-0.1 43 Comprehensive Metabolic Panel 06/17/2017 Glucose 70 mg/dL Low 74-106 43 BUN 12 mg/dL 7-18 43 Creatinine 0.6 mg/dL 0.6-1.3 43 Glom Filtration Rate, Estimate >60 mL/min >60 43 If >60 mL/min >60 43, 44 BUN/Creat 20.0 ratio 43 Sodium 138 mmol/L 136-145 43 Potassium 4.0 mmol/L 3.5-5.1 43 Chloride 102 mmol/L 98-107 43 Carbon Dioxide 28 mmol/L 21-32 43 Anion Gap 8 mEq/L 8-16 43 Calcium 9.7 mg/dL 8.5-10.1 43 Total Protein 7.2 g/dL 6.4-8.2 43 Albumin 3.7 g/dL 3.4-5.0 43 Globulin 3.5 g/dL 1.9-4.3 43 Alb/Glob 1.1 ratio 43 Bilirubin,Total 0.3 mg/dL 0.2-1.0 43 Sgot/Ast 15 U/L 15-37 43 SGPT/Alt 17 U/L 12-78 43 Alkaline Phosphatase 123 U/L High 45-117 43 Iron-Tibc-%Sat 06/17/2017 Serum Iron 77 g/dL 50-170 43 Total Iron Binding Capacity 372 g/dL 250-450 43 Transferrin %Saturation 21 % 12-57 43 CBS W/Automated Diff 05/27/2017 White Blood Count 6.2 K/uL 3.1-10.7 43 Red Blood Count 3.70 M/uL Low 3.90-5.40 43 Hemoglobin 12.2 gm/dL 11.6-15.8 43 Hematocrit 37.6 % 36.0-46.1 43 Mean Cell Volume 101.6 fl High 80.9-99.0 43 Mean Corpuscular HGB 33.0 pg High 25.9-32.7 43 Mean Corpuscular HGB Conc 32.4 g/dL 30.8-34.3 43 Platelet Count 295 K/uL 150-400 43 Red Cell Distri Width SD 50.9 fl High 3-47 43 Red Cell Distri Width %CV 14.1 % 11.7-14.4 43 Mean Platelet Volume 10.6 fL 8.9-12.4 43 Neut% 64.7 % 40.4-72.8 43 Lymph % 16.5 % Low 20.0-42.0 43 Sunflower % 16.7 % High 4.3-13.2 43 Eo% 1.1 % 0.0-6.6 43 Bas% 1.0 % 0.0-1.1 43 Neut# 4.04 K/uL 1.8-7.0 43 Lymph # 1.03 K/uL 1.0-4.0 43 Sunflower # 1.04 K/uL High 0.3-0.9 43 Eos # 0.07 K/uL 0.0-0.5 43 Baso # 0.06 K/uL 0.0-0.1 43 Comprehensive Metabolic Panel 05/27/2017 Glucose 82 mg/dL 74-106 43 BUN 9 mg/dL 7-18 43 Creatinine 0.6 mg/dL 0.6-1.3 43 Glom Filtration Rate, Estimate >60 mL/min >60 43 If >60 mL/min >60 43, 45 BUN/Creat 15.0 ratio 43 Sodium 138 mmol/L 136-145 43 Potassium 3.3 mmol/L Low 3.5-5.1 43 Chloride 103 mmol/L 98-107 43 Carbon Dioxide 27 mmol/L 21-32 43 Anion Gap 8 mEq/L 8-16 43 Calcium 9.4 mg/dL 8.5-10.1 43 Total Protein 7.0 g/dL 6.4-8.2 43 Albumin 3.3 g/dL Low 3.4-5.0 43 Globulin 3.7 g/dL 1.9-4.3 43 Alb/Glob 0.9 ratio 43 Bilirubin,Total 0.4 mg/dL 0.2-1.0 43 Sgot/Ast 18 U/L 15-37 43 SGPT/Alt 14 U/L 12-78 43 Alkaline Phosphatase 144 U/L High 45-117 43 Laboratory test finding 05/27/2017 Magnesium 1.7 mg/dL Low 1.8-2.4 43 CBS W/Automated Diff 05/13/2017 White Blood Count 8.5 K/uL 3.1-10.7 46 Red Blood Count 3.62 M/uL Low 3.90-5.40 46 Hemoglobin 12.4 gm/dL 11.6-15.8 46 Hematocrit 35.8 % Low 36.0-46.1 46 Mean Cell Volume 98.9 fl 80.9-99.0 46 Mean Corpuscular HGB 34.3 pg High 25.9-32.7 46 Mean Corpuscular HGB Conc 34.6 g/dL High 30.8-34.3 46 Platelet Count 194 K/uL 150-400 46 Red Cell Distri Width SD 49.3 fl High 3-47 46 Red Cell Distri Width %CV 13.7 % 11.7-14.4 46 Mean Platelet Volume 11.7 fL 8.9-12.4 46, 47 Neut# 6.86 K/uL 1.8-7.0 46 Lymph # 0.71 K/uL Low 1.0-4.0 46 Sunflower # 0.85 K/uL 0.3-0.9 46 Eos # 0.08 K/uL 0.0-0.5 46 Baso # 0.03 K/uL 0.0-0.1 46 Comprehensive Metabolic Panel 05/13/2017 Glucose 94 mg/dL 74-106 46 BUN 12 mg/dL 7-18 46 Creatinine 0.7 mg/dL 0.6-1.3 46 Glom Filtration Rate, Estimate >60 mL/min >60 46 If >60 mL/min >60 46, 48 BUN/Creat 17.1 ratio 46 Sodium 137 mmol/L 136-145 46 Potassium 3.3 mmol/L Low 3.5-5.1 46 Chloride 98 mmol/L 98-107 46 Carbon Dioxide 31 mmol/L 21-32 46 Anion Gap 8 mEq/L 8-16 46 Calcium 9.1 mg/dL 8.5-10.1 46 Total Protein 7.1 g/dL 6.4-8.2 46 Albumin 3.4 g/dL 3.4-5.0 46 Globulin 3.7 g/dL 1.9-4.3 46 Alb/Glob 0.9 ratio 46 Bilirubin,Total 0.5 mg/dL 0.2-1.0 46 Sgot/Ast 13 U/L Low 15-37 46, 49 SGPT/Alt 19 U/L 12-78 46 Alkaline Phosphatase 172 U/L High 45-117 46 Laboratory test finding 05/13/2017 Slide Review DIFF ORDERED 46 Differential-WBC Confirm 05/13/2017 Total Cells Counted 100 #CELLS 46 Myelocyte% 1 % High -0 46 Band% 11 % High 0-8 46 Neutrophils% 72 % 33-73 46 Lymph% 10 % Low 20-42 46 Monocyte% 5 % 0-10 46 Eosinophil% 1 % 0-5 46 Platelet Estimate NORMAL 46 Toxic Granulation 0-1+ 46 Iron-Tibc-%Sat 05/06/2017 Serum Iron 37 g/dL Low 50-170 50 Total Iron Binding Capacity 359 g/dL 250-450 50 Transferrin %Saturation 10 % Low 12-57 50 Comprehensive Metabolic Panel 05/06/2017 Glucose 139 mg/dL High 74-106 50 BUN 12 mg/dL 7-18 50 Creatinine 0.8 mg/dL 0.6-1.3 50 Glom Filtration Rate, Estimate >60 mL/min >60 50 If >60 mL/min >60 50, 51 BUN/Creat 15.0 ratio 50 Sodium 140 mmol/L 136-145 50 Potassium 3.1 mmol/L Low 3.5-5.1 50 Chloride 102 mmol/L 98-107 50 Carbon Dioxide 28 mmol/L 21-32 50 Anion Gap 10 mEq/L 8-16 50 Calcium 8.9 mg/dL 8.5-10.1 50 Total Protein 7.1 g/dL 6.4-8.2 50 Albumin 3.1 g/dL Low 3.4-5.0 50 Globulin 4.0 g/dL 1.9-4.3 50 Alb/Glob 0.8 ratio 50 Bilirubin,Total 0.5 mg/dL 0.2-1.0 50 Sgot/Ast 15 U/L 15-37 50 SGPT/Alt 18 U/L 12-78 50 Alkaline Phosphatase 128 U/L High 45-117 50 CBS W/Automated Diff 05/06/2017 White Blood Count 7.4 K/uL 3.1-10.7 50 Red Blood Count 3.83 M/uL Low 3.90-5.40 50 Hemoglobin 12.6 gm/dL 11.6-15.8 50 Hematocrit 38.0 % 36.0-46.1 50 Mean Cell Volume 99.2 fl High 80.9-99.0 50 Mean Corpuscular HGB 32.9 pg High 25.9-32.7 50 Mean Corpuscular HGB Conc 33.2 g/dL 30.8-34.3 50 Platelet Count 319 K/uL 150-400 50 Red Cell Distri Width SD 50.1 fl High 3-47 50 Red Cell Distri Width %CV 14.1 % 11.7-14.4 50 Mean Platelet Volume 10.4 fL 8.9-12.4 50 Neut% 71.9 % 40.4-72.8 50 Lymph % 12.0 % Low 20.0-42.0 50 Sunflower % 14.5 % High 4.3-13.2 50 Eo% 1.1 % 0.0-6.6 50 Bas% 0.5 % 0.0-1.1 50 Neut# 5.31 K/uL 1.8-7.0 50 Lymph # 0.89 K/uL Low 1.0-4.0 50 Sunflower # 1.07 K/uL High 0.3-0.9 50 Eos # 0.08 K/uL 0.0-0.5 50 Baso # 0.04 K/uL 0.0-0.1 50 CBS W/Automated Diff 04/16/2017 White Blood Count 6.2 K/uL 3.1-10.7 52 Red Blood Count 3.65 M/uL Low 3.90-5.40 52 Hemoglobin 12.1 gm/dL 11.6-15.8 52 Hematocrit 36.5 % 36.0-46.1 52 Mean Cell Volume 100.0 fl High 80.9-99.0 52 Mean Corpuscular HGB 33.2 pg High 25.9-32.7 52 Mean Corpuscular HGB Conc 33.2 g/dL 30.8-34.3 52 Platelet Count 300 K/uL 150-400 52 Red Cell Distri Width SD 61.6 fl High 3-47 52 Red Cell Distri Width %CV 17.3 % High 11.7-14.4 52 Mean Platelet Volume 10.1 fL 8.9-12.4 52 Neut% 70.9 % 40.4-72.8 52 Lymph % 14.1 % Low 20.0-42.0 52 Sunflower % 12.3 % 4.3-13.2 52 Eo% 2.2 % 0.0-6.6 52 Bas% 0.5 % 0.0-1.1 52 Neut# 4.42 K/uL 1.8-7.0 52 Lymph # 0.88 K/uL Low 1.0-4.0 52 Sunflower # 0.77 K/uL 0.3-0.9 52 Eos # 0.14 K/uL 0.0-0.5 52 Baso # 0.03 K/uL 0.0-0.1 52 Comprehensive Metabolic Panel 04/16/2017 Glucose 81 mg/dL 74-106 52 BUN 11 mg/dL 7-18 52 Creatinine 0.7 mg/dL 0.6-1.3 52 Glom Filtration Rate, Estimate >60 mL/min >60 52 If >60 mL/min >60 52, 53 BUN/Creat 15.7 ratio 52 Sodium 139 mmol/L 136-145 52 Potassium 3.2 mmol/L Low 3.5-5.1 52 Chloride 105 mmol/L 98-107 52 Carbon Dioxide 28 mmol/L 21-32 52 Anion Gap 6 mEq/L Low 8-16 52 Calcium 9.5 mg/dL 8.5-10.1 52 Total Protein 7.3 g/dL 6.4-8.2 52 Albumin 3.2 g/dL Low 3.4-5.0 52 Globulin 4.1 g/dL 1.9-4.3 52 Alb/Glob 0.8 ratio 52 Bilirubin,Total 0.4 mg/dL 0.2-1.0 52 Sgot/Ast 27 U/L 15-37 52 SGPT/Alt 30 U/L 12-78 52 Alkaline Phosphatase 141 U/L High 45-117 52 CBS W/Automated Diff 04/04/2017 White Blood Count 10.0 K/uL 3.1-10.7 54 Red Blood Count 3.60 M/uL Low 3.90-5.40 54 Hemoglobin 11.5 gm/dL Low 11.6-15.8 54 Hematocrit 35.2 % Low 36.0-46.1 54 Mean Cell Volume 97.8 fl 80.9-99.0 54 Mean Corpuscular HGB 31.9 pg 25.9-32.7 54 Mean Corpuscular HGB Conc 32.7 g/dL 30.8-34.3 54 Platelet Count 274 K/uL 150-400 54 Red Cell Distri Width SD 63.6 fl High 3-47 54 Red Cell Distri Width %CV 18.8 % High 11.7-14.4 54 Mean Platelet Volume 9.9 fL 8.9-12.4 54 Neut% 87.0 % High 40.4-72.8 54 Lymph % 3.4 % Low 20.0-42.0 54 Sunflower % 8.8 % 4.3-13.2 54 Eo% 0.7 % 0.0-6.6 54 Bas% 0.1 % 0.0-1.1 54 Neut# 8.72 K/uL High 1.8-7.0 54 Lymph # 0.34 K/uL Low 1.0-4.0 54 Sunflower # 0.88 K/uL 0.3-0.9 54 Eos # 0.07 K/uL 0.0-0.5 54 Baso # 0.01 K/uL 0.0-0.1 54 Comprehensive Metabolic Panel 04/04/2017 Glucose 106 mg/dL 74-106 54 BUN 17 mg/dL 7-18 54 Creatinine 0.7 mg/dL 0.6-1.3 54 Glom Filtration Rate, Estimate >60 mL/min >60 54 If >60 mL/min >60 54, 55 BUN/Creat 24.2 ratio 54 Sodium 138 mmol/L 136-145 54 Potassium 3.0 mmol/L Low 3.5-5.1 54 Chloride 101 mmol/L 98-107 54 Carbon Dioxide 25 mmol/L 21-32 54 Anion Gap 12 mEq/L 8-16 54 Calcium 9.4 mg/dL 8.5-10.1 54 Total Protein 7.1 g/dL 6.4-8.2 54 Albumin 3.5 g/dL 3.4-5.0 54 Globulin 3.6 g/dL 1.9-4.3 54 Alb/Glob 1.0 ratio 54 Bilirubin,Total 0.6 mg/dL 0.2-1.0 54 Sgot/Ast 17 U/L 15-37 54 SGPT/Alt 41 U/L 12-78 54 Alkaline Phosphatase 94 U/L 45-117 54 Slide Review 04/04/2017 Slide Review . 54, 56 RBC Morphology Only 04/04/2017 Poikilocytosis 0-1+ 54 Anisocytosis 1+ 54 Ovalocytes 1+ 54 CBS W/Automated Diff 04/01/2017 White Blood Count 12.3 K/uL High 3.1-10.7 57 Red Blood Count 3.63 M/uL Low 3.90-5.40 57 Hemoglobin 11.9 gm/dL 11.6-15.8 57 Hematocrit 35.5 % Low 36.0-46.1 57 Mean Cell Volume 97.8 fl 80.9-99.0 57 Mean Corpuscular HGB 32.8 pg High 25.9-32.7 57 Mean Corpuscular HGB Conc 33.5 g/dL 30.8-34.3 57 Platelet Count 299 K/uL 150-400 57 Red Cell Distri Width SD 63.3 fl High 3-47 57 Red Cell Distri Width %CV 18.8 % High 11.7-14.4 57 Mean Platelet Volume 9.7 fL 8.9-12.4 57 Neut% 81.6 % High 40.4-72.8 57 Lymph % 7.4 % Low 20.0-42.0 57 Sunflower % 10.8 % 4.3-13.2 57 Eo% 0.2 % 0.0-6.6 57 Bas% 0.0 % 0.0-1.1 57 Neut# 10.00 K/uL High 1.8-7.0 57 Lymph # 0.91 K/uL Low 1.0-4.0 57 Sunflower # 1.33 K/uL High 0.3-0.9 57 Eos # 0.03 K/uL 0.0-0.5 57 Baso # 0.00 K/uL 0.0-0.1 57 Comprehensive Metabolic Panel 04/01/2017 Glucose 95 mg/dL 74-106 57 BUN 19 mg/dL High 7-18 57 Creatinine 0.9 mg/dL 0.6-1.3 57 Glom Filtration Rate, Estimate >60 mL/min >60 57 If >60 mL/min >60 57, 58 BUN/Creat 21.1 ratio 57 Sodium 136 mmol/L 136-145 57 Potassium 3.5 mmol/L 3.5-5.1 57 Chloride 100 mmol/L 98-107 57 Carbon Dioxide 29 mmol/L 21-32 57 Anion Gap 7 mEq/L Low 8-16 57 Calcium 9.5 mg/dL 8.5-10.1 57 Total Protein 7.3 g/dL 6.4-8.2 57 Albumin 3.6 g/dL 3.4-5.0 57 Globulin 3.7 g/dL 1.9-4.3 57 Alb/Glob 1.0 ratio 57 Bilirubin,Total 0.4 mg/dL 0.2-1.0 57 Sgot/Ast 23 U/L 15-37 57 SGPT/Alt 47 U/L 12-78 57 Alkaline Phosphatase 104 U/L 45-117 57 Laboratory test finding 04/01/2017 Magnesium 1.8 mg/dL 1.8-2.4 57, 59 Iron-Tibc-%Sat 04/01/2017 Serum Iron 103 g/dL 50-170 57 Total Iron Binding Capacity 401 g/dL 250-450 57 Transferrin %Saturation 26 % 12-57 57 Slide Review 04/01/2017 Slide Review . 57, 60 RBC Morphology Only 04/01/2017 Polychromasia 0-1+ 57 Poikilocytosis 1+ 57 Anisocytosis 1+ 57 Macrocytosis 0-1+ 57 Schistocytes 0-1+ 57 Ovalocytes 1+ 57 Elliptocytes 0-1+ 57 Xray 03/19/2017 CT, Chest, With Contrast <pending> Materials CBS W/Automated Diff 03/07/2017 White Blood Count 3.2 K/uL 3.1-10.7 61 Red Blood Count 3.04 M/uL Low 3.90-5.40 61 Hemoglobin 9.7 gm/dL Low 11.6-15.8 61 Hematocrit 28.8 % Low 36.0-46.1 61 Mean Cell Volume 94.7 fl 80.9-99.0 61 Mean Corpuscular HGB 31.9 pg 25.9-32.7 61 Mean Corpuscular HGB Conc 33.7 g/dL 30.8-34.3 61 Platelet Count 253 K/uL 150-400 61 Red Cell Distri Width SD 51.1 fl High 3-47 61 Red Cell Distri Width %CV 15.9 % High 11.7-14.4 61 Mean Platelet Volume 9.5 fL 8.9-12.4 61 Neut% 77.8 % High 40.4-72.8 61 Lymph % 6.8 % Low 20.0-42.0 61 Sunflower % 14.5 % High 4.3-13.2 61 Eo% 0.3 % 0.0-6.6 61 Bas% 0.6 % 0.0-1.1 61 Neut# 2.52 K/uL 1.8-7.0 61 Lymph # 0.22 K/uL Low 1.0-4.0 61 Sunflower # 0.47 K/uL 0.3-0.9 61 Eos # 0.01 K/uL 0.0-0.5 61 Baso # 0.02 K/uL 0.0-0.1 61 Comprehensive Metabolic Panel 03/07/2017 Glucose 105 mg/dL 74-106 61 BUN 11 mg/dL 7-18 61 Creatinine 0.6 mg/dL 0.6-1.3 61 Glom Filtration Rate, Estimate >60 mL/min >60 61 If >60 mL/min >60 61, 62 BUN/Creat 18.3 ratio 61 Sodium 136 mmol/L 136-145 61 Potassium 3.2 mmol/L Low 3.5-5.1 61 Chloride 99 mmol/L 98-107 61 Carbon Dioxide 29 mmol/L 21-32 61 Anion Gap 8 mEq/L 8-16 61 Calcium 8.9 mg/dL 8.5-10.1 61 Total Protein 6.9 g/dL 6.4-8.2 61 Albumin 3.6 g/dL 3.4-5.0 61 Globulin 3.3 g/dL 1.9-4.3 61 Alb/Glob 1.1 ratio 61 Bilirubin,Total 0.6 mg/dL 0.2-1.0 61 Sgot/Ast 17 U/L 15-37 61 SGPT/Alt 24 U/L 12-78 61 Alkaline Phosphatase 96 U/L 45-117 61 Laboratory test finding 03/07/2017 Magnesium 1.8 mg/dL 1.8-2.4 61, 63 Comprehensive Metabolic Panel 02/28/2017 Glucose 133 mg/dL High 74-106 64 BUN 16 mg/dL 7-18 64 Creatinine 0.9 mg/dL 0.6-1.3 64 Glom Filtration Rate, Estimate >60 mL/min >60 64 If >60 mL/min >60 64, 65 BUN/Creat 17.7 ratio 64 Sodium 135 mmol/L Low 136-145 64 Potassium 3.0 mmol/L Low 3.5-5.1 64 Chloride 98 mmol/L 98-107 64 Carbon Dioxide 26 mmol/L 21-32 64 Anion Gap 11 mEq/L 8-16 64 Calcium 9.2 mg/dL 8.5-10.1 64 Total Protein 7.1 g/dL 6.4-8.2 64 Albumin 3.8 g/dL 3.4-5.0 64 Globulin 3.3 g/dL 1.9-4.3 64 Alb/Glob 1.2 ratio 64 Bilirubin,Total 0.3 mg/dL 0.2-1.0 64 Sgot/Ast 14 U/L Low 15-37 64, 66 SGPT/Alt 22 U/L 12-78 64 Alkaline Phosphatase 92 U/L 45-117 64 CBS W/Automated Diff 02/28/2017 White Blood Count 3.5 K/uL 3.1-10.7 64 Red Blood Count 3.18 M/uL Low 3.90-5.40 64 Hemoglobin 9.9 gm/dL Low 11.6-15.8 64 Hematocrit 30.0 % Low 36.0-46.1 64 Mean Cell Volume 94.3 fl 80.9-99.0 64 Mean Corpuscular HGB 31.1 pg 25.9-32.7 64 Mean Corpuscular HGB Conc 33.0 g/dL 30.8-34.3 64 Platelet Count 252 K/uL 150-400 64 Red Cell Distri Width SD 47.2 fl High 3-47 64 Red Cell Distri Width %CV 14.8 % High 11.7-14.4 64 Mean Platelet Volume 9.5 fL 8.9-12.4 64 Neut% 73.9 % High 40.4-72.8 64 Lymph % 14.2 % Low 20.0-42.0 64 Sunflower % 11.6 % 4.3-13.2 64 Eo% 0.3 % 0.0-6.6 64 Bas% 0.0 % 0.0-1.1 64 Neut# 2.61 K/uL 1.8-7.0 64 Lymph # 0.50 K/uL Low 1.0-4.0 64 Sunflower # 0.41 K/uL 0.3-0.9 64 Eos # 0.01 K/uL 0.0-0.5 64 Baso # 0.00 K/uL 0.0-0.1 64 Laboratory test finding 02/28/2017 Magnesium 1.4 mg/dL Low 1.8-2.4 64, 67 CBS W/Automated Diff 02/20/2017 White Blood Count 3.6 K/uL 3.1-10.7 64 Red Blood Count 3.32 M/uL Low 3.90-5.40 64 Hemoglobin 10.4 gm/dL Low 11.6-15.8 64 Hematocrit 31.1 % Low 36.0-46.1 64 Mean Cell Volume 93.7 fl 80.9-99.0 64 Mean Corpuscular HGB 31.3 pg 25.9-32.7 64 Mean Corpuscular HGB Conc 33.4 g/dL 30.8-34.3 64 Platelet Count 198 K/uL 150-400 64 Red Cell Distri Width SD 45.9 fl 3-47 64 Red Cell Distri Width %CV 14.1 % 11.7-14.4 64 Mean Platelet Volume 9.7 fL 8.9-12.4 64 Neut% 79.8 % High 40.4-72.8 64 Lymph % 10.5 % Low 20.0-42.0 64 Sunflower % 7.7 % 4.3-13.2 64 Eo% 1.4 % 0.0-6.6 64 Bas% 0.6 % 0.0-1.1 64 Neut# 2.90 K/uL 1.8-7.0 64 Lymph # 0.38 K/uL Low 1.0-4.0 64 Sunflower # 0.28 K/uL Low 0.3-0.9 64 Eos # 0.05 K/uL 0.0-0.5 64 Baso # 0.02 K/uL 0.0-0.1 64 Comprehensive Metabolic Panel 02/20/2017 Glucose 96 mg/dL 74-106 64 BUN 11 mg/dL 7-18 64 Creatinine 0.7 mg/dL 0.6-1.3 64 Glom Filtration Rate, Estimate >60 mL/min >60 64 If >60 mL/min >60 64, 68 BUN/Creat 15.7 ratio 64 Sodium 136 mmol/L 136-145 64 Potassium 3.9 mmol/L 3.5-5.1 64 Chloride 103 mmol/L 98-107 64 Carbon Dioxide 27 mmol/L 21-32 64 Anion Gap 6 mEq/L Low 8-16 64 Calcium 8.8 mg/dL 8.5-10.1 64 Total Protein 7.0 g/dL 6.4-8.2 64 Albumin 3.6 g/dL 3.4-5.0 64 Globulin 3.4 g/dL 1.9-4.3 64 Alb/Glob 1.1 ratio 64 Bilirubin,Total 0.7 mg/dL 0.2-1.0 64 Sgot/Ast 15 U/L 15-37 64 SGPT/Alt 19 U/L 12-78 64 Alkaline Phosphatase 99 U/L 45-117 64 Laboratory test finding 02/20/2017 Slide Review . 64, 69 RBC Morphology Only 02/20/2017 Hypochromia 0-1+ 64 Anisocytosis 0-1+ 64 Macrocytosis 0-1+ 64 Comprehensive Metabolic Panel 02/13/2017 Glucose 105 mg/dL 74-106 70 BUN 10 mg/dL 7-18 70 Creatinine 0.6 mg/dL 0.6-1.3 70 Glom Filtration Rate, Estimate >60 mL/min >60 70 If >60 mL/min >60 70, 71 BUN/Creat 16.6 ratio 70 Sodium 138 mmol/L 136-145 70 Potassium 3.9 mmol/L 3.5-5.1 70 Chloride 103 mmol/L 98-107 70 Carbon Dioxide 27 mmol/L 21-32 70 Anion Gap 8 mEq/L 8-16 70 Calcium 8.8 mg/dL 8.5-10.1 70 Total Protein 7.2 g/dL 6.4-8.2 70 Albumin 3.7 g/dL 3.4-5.0 70 Globulin 3.5 g/dL 1.9-4.3 70 Alb/Glob 1.1 ratio 70 Bilirubin,Total 0.4 mg/dL 0.2-1.0 70 Sgot/Ast 18 U/L 15-37 70 SGPT/Alt 23 U/L 12-78 70 Alkaline Phosphatase 107 U/L 45-117 70 CBS W/Automated Diff 02/13/2017 White Blood Count 3.8 K/uL 3.1-10.7 70 Red Blood Count 3.42 M/uL Low 3.90-5.40 70 Hemoglobin 10.7 gm/dL Low 11.6-15.8 70 Hematocrit 32.1 % Low 36.0-46.1 70 Mean Cell Volume 93.9 fl 80.9-99.0 70 Mean Corpuscular HGB 31.3 pg 25.9-32.7 70 Mean Corpuscular HGB Conc 33.3 g/dL 30.8-34.3 70 Platelet Count 247 K/uL 150-400 70 Red Cell Distri Width SD 44.9 fl 3-47 70 Red Cell Distri Width %CV 13.8 % 11.7-14.4 70 Mean Platelet Volume 9.8 fL 8.9-12.4 70 Neut% 70.5 % 40.4-72.8 70 Lymph % 11.3 % Low 20.0-42.0 70 Sunflower % 15.3 % High 4.3-13.2 70 Eo% 1.6 % 0.0-6.6 70 Bas% 1.3 % High 0.0-1.1 70 Neut# 2.67 K/uL 1.8-7.0 70 Lymph # 0.43 K/uL Low 1.0-4.0 70 Sunflower # 0.58 K/uL 0.3-0.9 70 Eos # 0.06 K/uL 0.0-0.5 70 Baso # 0.05 K/uL 0.0-0.1 70 CBS W/Automated Diff 02/06/2017 White Blood Count 5.9 K/uL 3.1-10.7 72 Red Blood Count 3.64 M/uL Low 3.90-5.40 72 Hemoglobin 11.2 gm/dL Low 11.6-15.8 72 Hematocrit 34.5 % Low 36.0-46.1 72 Mean Cell Volume 94.8 fl 80.9-99.0 72 Mean Corpuscular HGB 30.8 pg 25.9-32.7 72 Mean Corpuscular HGB Conc 32.5 g/dL 30.8-34.3 72 Platelet Count 320 K/uL 150-400 72 Red Cell Distri Width SD 45.9 fl 3-47 72 Red Cell Distri Width %CV 13.7 % 11.7-14.4 72 Mean Platelet Volume 10.0 fL 8.9-12.4 72 Neut% 76.8 % High 40.4-72.8 72 Lymph % 10.2 % Low 20.0-42.0 72 Sunflower % 9.2 % 4.3-13.2 72 Eo% 3.1 % 0.0-6.6 72 Bas% 0.7 % 0.0-1.1 72 Neut# 4.54 K/uL 1.8-7.0 72 Lymph # 0.60 K/uL Low 1.0-4.0 72 Sunflower # 0.54 K/uL 0.3-0.9 72 Eos # 0.18 K/uL 0.0-0.5 72 Baso # 0.04 K/uL 0.0-0.1 72 Comprehensive Metabolic Panel 02/06/2017 Glucose 131 mg/dL High 74-106 72 BUN 17 mg/dL 7-18 72 Creatinine 0.8 mg/dL 0.6-1.3 72 Glom Filtration Rate, Estimate >60 mL/min >60 72 If >60 mL/min >60 72, 73 BUN/Creat 21.2 ratio 72 Sodium 138 mmol/L 136-145 72 Potassium 3.9 mmol/L 3.5-5.1 72 Chloride 102 mmol/L 98-107 72 Carbon Dioxide 28 mmol/L 21-32 72 Anion Gap 8 mEq/L 8-16 72 Calcium 8.8 mg/dL 8.5-10.1 72 Total Protein 7.2 g/dL 6.4-8.2 72 Albumin 3.5 g/dL 3.4-5.0 72 Globulin 3.7 g/dL 1.9-4.3 72 Alb/Glob 0.9 ratio 72 Bilirubin,Total 0.4 mg/dL 0.2-1.0 72 Sgot/Ast 17 U/L 15-37 72 SGPT/Alt 19 U/L 12-78 72 Alkaline Phosphatase 114 U/L 45-117 72 Laboratory test finding 02/06/2017 Magnesium 1.7 mg/dL Low 1.8-2.4 72, 74 CBS W/Automated Diff 01/30/2017 White Blood Count 8.0 K/uL 3.1-10.7 75 Red Blood Count 3.79 M/uL Low 3.90-5.40 75 Hemoglobin 11.7 gm/dL 11.6-15.8 75 Hematocrit 35.5 % Low 36.0-46.1 75 Mean Cell Volume 93.7 fl 80.9-99.0 75 Mean Corpuscular HGB 30.9 pg 25.9-32.7 75 Mean Corpuscular HGB Conc 33.0 g/dL 30.8-34.3 75 Platelet Count 267 K/uL 150-400 75 Red Cell Distri Width SD 45.3 fl 3-47 75 Red Cell Distri Width %CV 13.7 % 11.7-14.4 75 Mean Platelet Volume 10.5 fL 8.9-12.4 75 Neut% 75.0 % High 40.4-72.8 75 Lymph % 11.6 % Low 20.0-42.0 75 Sunflower % 9.9 % 4.3-13.2 75 Eo% 2.9 % 0.0-6.6 75 Bas% 0.6 % 0.0-1.1 75 Neut# 6.01 K/uL 1.8-7.0 75 Lymph # 0.93 K/uL Low 1.0-4.0 75 Sunflower # 0.79 K/uL 0.3-0.9 75 Eos # 0.23 K/uL 0.0-0.5 75 Baso # 0.05 K/uL 0.0-0.1 75 Comprehensive Metabolic Panel 01/30/2017 Glucose 119 mg/dL High 74-106 75 BUN 16 mg/dL 7-18 75 Creatinine 0.7 mg/dL 0.6-1.3 75 Glom Filtration Rate, Estimate >60 mL/min >60 75 If >60 mL/min >60 75, 76 BUN/Creat 22.8 ratio 75 Sodium 138 mmol/L 136-145 75 Potassium 4.0 mmol/L 3.5-5.1 75 Chloride 103 mmol/L 98-107 75 Carbon Dioxide 26 mmol/L 21-32 75 Anion Gap 9 mEq/L 8-16 75 Calcium 9.2 mg/dL 8.5-10.1 75 Total Protein 7.4 g/dL 6.4-8.2 75 Albumin 3.6 g/dL 3.4-5.0 75 Globulin 3.8 g/dL 1.9-4.3 75 Alb/Glob 0.9 ratio 75 Bilirubin,Total 0.6 mg/dL 0.2-1.0 75 Sgot/Ast 17 U/L 15-37 75 SGPT/Alt 19 U/L 12-78 75 Alkaline Phosphatase 111 U/L 45-117 75 Laboratory test 01/30/2017 Magnesium 1.6 mg/dL Low 1.8-2.4 75, 77 finding Alp SerPl-cCnc 01/30/2017 Alp SerPl-cCnc 111 45-117 Alt SerPl-cCnc 01/30/2017 Alt SerPl-cCnc 19 12-78 Ast SerPl-cCnc 01/30/2017 Ast SerPl-cCnc 17 15-37 Albumin SerPl-mCnc 01/30/2017 Albumin SerPl-mCnc 3.6 3.4-5.0 Albumin/Glob SerPl 01/30/2017 Albumin/Glob SerPl 0.9 Anion Gap SerPl-sCnc 01/30/2017 Anion Gap SerPl-sCnc 9 8-16 BUN SerPl-mCnc 01/30/2017 BUN SerPl-mCnc 16 7-18 WBC # Bld Auto 01/30/2017 WBC # Bld Auto 8.0 3.1-10.7 RDW RBC Auto-Rto 01/30/2017 RDW RBC Auto-Rto 13.7 11.7-14.4 RDW RBC Auto 01/30/2017 RDW RBC Auto 45.3 3-47 RBC # Bld Auto 01/30/2017 RBC # Bld Auto 3.79 Low 3.90-5.40 Prot SerPl-mCnc 01/30/2017 Prot SerPl-mCnc 7.4 6.4-8.2 Potassium SerPl-sCnc 01/30/2017 Potassium SerPl-sCnc 4.0 3.5-5.1 Platelet # Bld Auto 01/30/2017 Platelet # Bld Auto 267 150-400 PMV Bld Auto 01/30/2017 PMV Bld Auto 10.5 8.9-12.4 Neutrophils/leuk NFr 01/30/2017 Neutrophils/leuk NFr 75.0 High 40.4-72.8 Bld Auto Bld Auto Neutrophils # Bld 01/30/2017 Neutrophils # Bld 6.01 1.8-7.0 Auto Auto Monocytes/leuk NFr 01/30/2017 Monocytes/leuk NFr 9.9 4.3-13.2 Bld Auto Bld Auto Monocytes # Bld Auto 01/30/2017 Monocytes # Bld Auto 0.79 0.3-0.9 MCV RBC Auto 01/30/2017 MCV RBC Auto 93.7 80.9-99.0 MCHC RBC Auto-mCnc 01/30/2017 MCHC RBC Auto-mCnc 33.0 30.8-34.3 MCH RBC Qn Auto 01/30/2017 MCH RBC Qn Auto 30.9 25.9-32.7 Lymphocytes/leuk NFr 01/30/2017 Lymphocytes/leuk NFr 11.6 Low 20.0-42.0 Bld Auto Bld Auto Lymphocytes # Bld 01/30/2017 Lymphocytes # Bld 0.93 Low 1.0-4.0 Auto Auto Hgb Bld-mCnc 01/30/2017 Hgb Bld-mCnc 11.7 11.6-15.8 Hct VFr Bld Auto 01/30/2017 Hct VFr Bld Auto 35.5 Low 36.0-46.1 Glucose [mass/volume] 01/30/2017 Glucose [mass/volume] 119 High 74-106 in serum or plasma in serum or plasma Globulin Ser 01/30/2017 Globulin Ser 3.8 1.9-4.3 Calc-mCnc Calc-mCnc Eosinophil/leuk NFr 01/30/2017 Eosinophil/leuk NFr 2.9 0.0-6.6 Bld Auto Bld Auto Eosinophil # Bld Auto 01/30/2017 Eosinophil # Bld Auto 0.23 0.0-0.5 Creat SerPl-mCnc 01/30/2017 Creat SerPl-mCnc 0.7 0.6-1.3 Chloride SerPl-sCnc 01/30/2017 Chloride SerPl-sCnc 103 98-107 Calcium SerPl-mCnc 01/30/2017 Calcium SerPl-mCnc 9.2 8.5-10.1 Co2 SerPl-sCnc 01/30/2017 Co2 SerPl-sCnc 26 21-32 Bilirub SerPl-mCnc 01/30/2017 Bilirub SerPl-mCnc 0.6 0.2-1.0 Basophils/leuk NFr 01/30/2017 Basophils/leuk NFr 0.6 0.0-1.1 Bld Auto Bld Auto Basophils # Bld Auto 01/30/2017 Basophils # Bld Auto 0.05 0.0-0.1 BUN/Creat SerPl 01/30/2017 BUN/Creat SerPl 22.8 Sodium SerPl-sCnc 01/30/2017 Sodium SerPl-sCnc 138 136-145 CBS W/Automated Diff 01/23/2017 White Blood Count 5.9 K/uL 3.1-10.7 75 Red Blood Count 3.93 M/uL 3.90-5.40 75 Hemoglobin 12.1 gm/dL 11.6-15.8 75 Hematocrit 36.9 % 36.0-46.1 75 Mean Cell Volume 93.9 fl 80.9-99.0 75 Mean Corpuscular HGB 30.8 pg 25.9-32.7 75 Mean Corpuscular HGB Conc 32.8 g/dL 30.8-34.3 75 Platelet Count 275 K/uL 150-400 75 Red Cell Distri Width SD 47.2 fl High 3-47 75 Red Cell Distri Width %CV 14.1 % 11.7-14.4 75 Mean Platelet Volume 10.6 fL 8.9-12.4 75 Neut% 67.8 % 40.4-72.8 75 Lymph % 15.7 % Low 20.0-42.0 75 Sunflower % 14.0 % High 4.3-13.2 75 Eo% 1.7 % 0.0-6.6 75 Bas% 0.8 % 0.0-1.1 75 Neut# 4.01 K/uL 1.8-7.0 75 Lymph # 0.93 K/uL Low 1.0-4.0 75 Sunflower # 0.83 K/uL 0.3-0.9 75 Eos # 0.10 K/uL 0.0-0.5 75 Baso # 0.05 K/uL 0.0-0.1 75 Comprehensive Metabolic Panel 01/23/2017 Glucose 95 mg/dL 74-106 75 BUN 15 mg/dL 7-18 75 Creatinine 0.6 mg/dL 0.6-1.3 75 Glom Filtration Rate, Estimate >60 mL/min >60 75 If >60 mL/min >60 75, 78 BUN/Creat 25.0 ratio 75 Sodium 139 mmol/L 136-145 75 Potassium 3.8 mmol/L 3.5-5.1 75 Chloride 103 mmol/L 98-107 75 Carbon Dioxide 25 mmol/L 21-32 75 Anion Gap 11 mEq/L 8-16 75 Calcium 9.1 mg/dL 8.5-10.1 75 Total Protein 6.9 g/dL 6.4-8.2 75 Albumin 3.9 g/dL 3.4-5.0 75 Globulin 3.0 g/dL 1.9-4.3 75 Alb/Glob 1.3 ratio 75 Bilirubin,Total 0.4 mg/dL 0.2-1.0 75 Sgot/Ast 23 U/L 15-37 75 SGPT/Alt 21 U/L 12-78 75 Alkaline Phosphatase 107 U/L 45-117 75 Laboratory test finding 01/23/2017 Magnesium 1.7 mg/dL Low 1.8-2.4 75, 79 CBC 01/16/2017 White Blood Count 8.6 K/uL 3.1-10.7 75 Red Blood Count 4.14 M/uL 3.90-5.40 75 Hemoglobin 12.9 gm/dL 11.6-15.8 75 Hematocrit 38.6 % 36.0-46.1 75 Mean Cell Volume 93.2 fl 80.9-99.0 75 Mean Corpuscular HGB 31.2 pg 25.9-32.7 75 Mean Corpuscular HGB Conc 33.4 g/dL 30.8-34.3 75 Platelet Count 384 K/uL 150-400 75 Red Cell Distri Width %CV 14.0 % 11.7-14.4 75 Mean Platelet Volume 9.7 fL 8.9-12.4 75 Anticoagulant Therapy? YES 75 Date of Last Dose: [id number] 75 Time of Last Dose: 0700 75 Protime 01/16/2017 Protime 13.1 seconds 12.0-14.4 75 Inr 1.0 0.9-1.1 75, 80 Anticoagulant Therapy? YES 75 Date of Last Dose: [id number] Time of Last Dose: 0700 75 Act Partial Thrombo 01/16/2017 Act Partial Thrombo 48.4 seconds High 23.4- 35.0 75 Time Time Anticoagulant Therapy? YES 75 Date of Last Dose: [id number] 75 Time of Last Dose: 0700 75 Activated partial 01/16/2017 Activated partial 48.4 High 23.4-35.0 thromboplastin time thromboplastin time (aPTT) in pl (aPTT) in platelet poor plasma by coagulation assay Prothrombin time 01/16/2017 Prothrombin time 13.1 12.0-14.4 Xray 01/15/2017 CT, Neck Soft Tissue <pending> With Contrast CT, Chest, With Contrast Materials <pending> Xray 01/15/2017 CT, Head Or Brain With <pending> Contrast CBS W/Automated Diff 12/26/2016 White Blood Count 8.5 K/uL 3.1-10.7 81 Red Blood Count 4.18 M/uL 3.90-5.40 81 Hemoglobin 12.8 gm/dL 11.6-15.8 81 Hematocrit 38.9 % 36.0-46.1 81 Mean Cell Volume 93.1 fl 80.9-99.0 81 Mean Corpuscular HGB 30.6 pg 25.9-32.7 81 Mean Corpuscular HGB Conc 32.9 g/dL 30.8-34.3 81 Platelet Count 367 K/uL 150-400 81 Red Cell Distri Width SD 47.3 fl High 3-47 81 Red Cell Distri Width %CV 14.3 % 11.7-14.4 81 Mean Platelet Volume 10.8 fL 8.9-12.4 81 Neut% 63.6 % 40.4-72.8 81 Lymph % 23.9 % 20.0-42.0 81 Sunflower % 9.5 % 4.3-13.2 81 Eo% 1.9 % 0.0-6.6 81 Bas% 1.1 % 0.0-1.1 81 Neut# 5.44 K/uL 1.8-7.0 81 Lymph # 2.04 K/uL 1.0-4.0 81 Sunflower # 0.81 K/uL 0.3-0.9 81 Eos # 0.16 K/uL 0.0-0.5 81 Baso # 0.09 K/uL 0.0-0.1 81 Comprehensive Metabolic Panel 12/26/2016 Glucose 104 mg/dL 74-106 81 BUN 18 mg/dL 7-18 81 Creatinine 0.7 mg/dL 0.6-1.3 81 Glom Filtration Rate, Estimate >60 mL/min >60 81 If >60 mL/min >60 81, 82 BUN/Creat 25.7 ratio 81 Sodium 138 mmol/L 136-145 81 Potassium 4.0 mmol/L 3.5-5.1 81 Chloride 102 mmol/L 98-107 81 Carbon Dioxide 26 mmol/L 21-32 81 Anion Gap 10 mEq/L 8-16 81 Calcium 9.5 mg/dL 8.5-10.1 81 Total Protein 7.4 g/dL 6.4-8.2 81 Albumin 4.2 g/dL 3.4-5.0 81 Globulin 3.2 g/dL 1.9-4.3 81 Alb/Glob 1.3 ratio 81 Bilirubin,Total 0.4 mg/dL 0.2-1.0 81 Sgot/Ast 21 U/L 15-37 81 SGPT/Alt 18 U/L 12-78 81 Alkaline Phosphatase 103 U/L 45-117 81 Protime 11/12/2016 Protime 12.4 seconds 12.0-14.4 83 Inr 0.9 0.9-1.1 83, 84 Fungal Culture With 11/12/2016 Fungal Fluorochrome Stain Fungus Stain 85, 86 Smear <SEE NOTE> Fungal Culture; Other Sources Fungus (Mycology <SEE NOTE> 85, 87 Routine Culture W/ Gram 11/12/2016 Gram Stain NO ORGANISMS SEE <SEE NOTE> 85, 88 Stain Gram Stain NO WHITE BLOOD C <SEE NOTE> 85, 89 Aerobic Culture NO GROWTH: FINAL <SEE NOTE> 85, 90 Comprehensive Metabolic Panel 09/20/2016 Glucose 87 mg/dL 74-106 91 BUN 15 mg/dL 7-18 91 Creatinine 0.9 mg/dL 0.6-1.3 91 Glom Filtration Rate, Estimate >60 mL/min >60 91 If >60 mL/min >60 91, 92 BUN/Creat 16.6 ratio 91 Sodium 142 mmol/L 136-145 91 Potassium 4.0 mmol/L 3.5-5.1 91 Chloride 105 mmol/L 98-107 91 Carbon Dioxide 28 mmol/L 21-32 91 Anion Gap 9 mEq/L 8-16 91 Calcium 9.3 mg/dL 8.5-10.1 91 Total Protein 7.6 g/dL 6.4-8.2 91 Albumin 4.0 g/dL 3.4-5.0 91 Globulin 3.6 g/dL 1.9-4.3 91 Alb/Glob 1.1 ratio 91 Bilirubin,Total 0.5 mg/dL 0.2-1.0 91 Sgot/Ast 18 U/L 15-37 91 SGPT/Alt 17 U/L 12-78 91 Alkaline Phosphatase 132 U/L High 45-117 91 CBS W/Automated Diff 09/20/2016 White Blood Count 9.2 K/uL 3.1-10.7 91 Red Blood Count 4.36 M/uL 3.90-5.40 91 Hemoglobin 13.3 gm/dL 11.6-15.8 91 Hematocrit 40.6 % 36.0-46.1 91 Mean Cell Volume 93.1 fl 80.9-99.0 91 Mean Corpuscular HGB 30.5 pg 25.9-32.7 91 Mean Corpuscular HGB Conc 32.8 g/dL 30.8-34.3 91 Platelet Count 456 K/uL High 155-360 91 Red Cell Distri Width SD 46.5 fl 3-47 91 Red Cell Distri Width %CV 14.0 % 11.7-14.4 91 Mean Platelet Volume 10.2 fL 8.9-12.4 91 Neut% 65.8 % 40.4-72.8 91 Lymph % 21.2 % 17.0-46.1 91 Sunflower % 9.0 % 4.3-13.2 91 Eo% 2.8 % 0.0-6.6 91 Bas% 1.2 % High 0.0-1.1 91 Neut# 6.02 K/uL 1.8-7.0 91 Lymph # 1.94 K/uL 1.8-7.0 91 Sunflower # 0.82 K/uL 0.3-0.9 91 Eos # 0.26 K/uL 0.0-0.5 91 Baso # 0.11 K/uL High 0.0-0.1 91 Laboratory test finding 07/16/2016 Alanine Aminotransferase (Alt/SGPT) 24 12-78 Albumin 3.9 3.4-5.0 Albumin/Globulin Ratio 1.0 Alkaline Phosphatase 122 High 45-117 Anion Gap 11 8-16 Aspartate Amino Transf (Ast/Sgot) 21 15-37 BUN/Creatinine Ratio 18.5 Basophils # (Auto) 0.05 0.0-0.1 Basophils (%) (Auto) 0.5 0.0-1.1 Blood Urea Nitrogen 13 7-18 Calcium Level 9.0 8.5-10.1 Carbon Dioxide Level 25 21-32 Chloride Level 102 98-107 Creatinine 0.7 0.6-1.3 Eosinophils # (Auto) 0.21 0.0-0.5 Eosinophils (%) (Auto) 2.0 0.0-6.6 Globulin 4.0 1.9-4.3 Glucose Screen 133 High 74-106 Hematocrit 39.5 36.0-46.1 Hemoglobin 12.9 11.6-15.8 Lymphocytes # (Auto) 1.71 Low 1.8-7.0 Lymphocytes (%) (Auto) 16.0 Low 17.0-46.1 Magnesium Level 1.7 Low 1.8-2.4 Manual Slide Review (Hematology) . Mean Corpuscular Hemoglobin 30.9 25.9-32.7 Mean Corpuscular Hemoglobin Concent 32.7 30.8-34.3 Mean Corpuscular Volume 94.5 80.9-99.0 Mean Platelet Volume 10.5 8.9-12.4 Monocytes # (Auto) 0.98 High 0.3-0.9 Monocytes (%) (Auto) 9.2 4.3-13.2 Neutrophils # (Auto) 7.71 High 1.8-7.0 Neutrophils (%) (Auto) 72.3 40.4-72.8 Platelet Count 440 High 155-360 Potassium Level 3.5 3.5-5.1 RDW Coefficient of Variation 14.6 High 11.7-14.4 Red Blood Count 4.18 3.90-5.40 Red Cell Distribution Width 49.0 High 3-47 Sodium Level 138 136-145 Total Bilirubin 0.4 0.2-1.0 Total Protein 7.9 6.4-8.2 White Blood Count 10.7 3.1-10.7 Laboratory test 06/21/2016 Pathology Specimen See Note 93 finding Result Afb Smear And Culture 06/21/2016 Afb Culture Acid Fast Cultur 94, 95 <SEE NOTE> Fungal Culture With 06/21/2016 Fungal Fluorochrome Fungus Stain 94, 96 Smear Stain Fungal Culture; Other Sources Fungus (Mycology <SEE NOTE> 94, 97 Anaerobic Culture W/ GR 06/21/2016 Gram Stain NO ORGANISMS SEE <SEE 94 , 98 Stain NOTE> Anaerobic Culture NO GROWTH 94 Laboratory test 06/21/2016 Anaerobic Culture Organism: No finding Growth Laboratory test 06/21/2016 Pathology Specimen (SEE NOTE) 94, 99 finding Protime 06/20/2016 Protime 12.7 seconds 12.0-14.4 100 Inr 1.0 0.9-1.1 100, 101 Laboratory test 06/20/2016 Act Partial Thrombo 44.5 seconds High 23.4- 35.0 100, 102 finding Time Laboratory test 06/20/2016 Inr International 1.0 0.9-1.1 finding Normalized Ratio Prothrombin Time 12.7 12.0-14.4 Act Partial Thrombo 06/13/2016 Act Partial Thrombo 46.4 seconds High 23.4- 35.0 Time Time @[facility] Pat Id: [id number] @[facility] Req #: [id number] Anticoagulant Therapy? NO Slide Review 06/13/2016 Slide Review (SEE NOTE) 103 @[facility] Pat Id: [id number] @[facility] Req #: [id number] Anticoagulant Therapy? NO Protime 06/13/2016 Protime 12.4 seconds 12.0-14.4 Inr 0.9 0.9-1.1 104 @[facility] Pat Id: [id number] @[facility] Req #: [id number] Anticoagulant Therapy? NO CBS W/Automated Diff 06/13/2016 White Blood Count 13.0 K/uL High 3.1-10.7 Red Blood Count 3.86 M/uL Low 3.90-5.40 Hemoglobin 11.8 gm/dL 11.6-15.8 Hematocrit 36.2 % 36.0-46.1 Mean Cell Volume 93.8 fl 80.9-99.0 Mean Corpuscular HGB 30.6 pg 25.9-32.7 Mean Corpuscular HGB Conc 32.6 g/dL 30.8-34.3 Platelet Count 691 K/uL High 155-360 Red Cell Distri Width SD 48.5 fl High 3-47 Red Cell Distri Width %CV 14.6 % High 11.7-14.4 Mean Platelet Volume 9.5 fL 8.9-12.4 Neut% 73.4 % High 40.4-72.8 Lymph % 12.5 % Low 17.0-46.1 Sunflower % 8.3 % 4.3-13.2 Eo% 4.6 % 0.0-6.6 Bas% 1.2 % High 0.0-1.1 Neut# 9.52 K/uL High 1.8-7.0 Lymph # 1.62 K/uL Low 1.8-7.0 Sunflower # 1.08 K/uL High 0.3-0.9 Eos # 0.59 K/uL High 0.0-0.5 Baso # 0.15 K/uL High 0.0-0.1 @[facility] Pat Id: [id number] @[facility] Req #: [id number] Anticoagulant Therapy? NO Afb Smear And Culture 06/13/2016 Afb Culture Acid Fast Cultur <SEE 105 , 106 NOTE> Respiratory Culture W/Gram 06/13/2016 Gram Stain >25 WBC/LPF 105, 107 St Respiratory Culture RESPIRATORY [facility] <SEE NOTE> 105, 108 Beta Lactamase (Cefinase) NEGATIVE 105 Recommended Therapy: BETA LACTAMASE N <SEE NOTE> 105, 109 Hae2 BETA LACTAMASE P <SEE NOTE> 105, 110 Quantity MODERATE 105 Laboratory test finding 05/31/2016 Phosphorus Level 2.0 Low 2.5-4.0 1 R07.9 2 Note: Persistent reduction for 3 months or more in an eGFR <60 mL/min/1.73 m2 defines CKD. Patients with eGFR values >/=60 mL/min/1.73 m2 may also have CKD if evidence of persistent proteinuria is present. The original MDRD equation for estimated GFR is not valid for patients less than 18 years of age. Additional information may be found at [email or web address]. 3 B44.9 ASPERGILLOSIS 4 Note: Persistent reduction for 3 months or more in an eGFR <60 mL/min/1.73 m2 defines CKD. Patients with eGFR values >/=60 mL/min/1.73 m2 may also have CKD if evidence of persistent proteinuria is present. The original MDRD equation for estimated GFR is not valid for patients less than 18 years of age. Additional information may be found at [email or web address]. 5 E78.5 Z13.820 E55.9 6 Vitamin D deficiency has been defined by the [employer] and an Endocrine Society practice guideline as a level of serum 25-OH vitamin D less than 20 ng/mL (1,2). The Endocrine Society went on to further define vitamin D insufficiency as a level between 21 and 29 ng/mL (2). 1. IOM ([employer]). 2010. Dietary reference intakes for calcium and D. [place]: The National Academies Press. 2. Jaiden MF, Alexandra NC, Mariam-Andrew TRAYLOR, et al. Evaluation, treatment, and prevention of vitamin D deficiency: an Endocrine Society clinical practice guideline. JCEM. 2010; 96(7):1911-30. Performed at: RN - [facility] [address] [id number] Pest Locator: Kisha Bustillos MD, Phone: [phone] 7 Reference Guidelines*: Desirable: ........... < 200 mg/dL Borderline High: ..... 200-239 mg/dL High: ................ >=240 mg/dL * The National Cholesterol Education Program (NCEP) 8 Reference Guidelines*: Normal: ............. < 150 mg/dL Borderline High: .... 150-199 mg/dL High: ............... 200-499 mg/dL Very High: .......... > 500 mg/dL * Source: National Cholesterol Education Program (NCEP) 9 Reference Guidelines*: Low HDL: ..... < 40 mg/dL Normal: ..... 40-60 mg/dL Desirable: ... > 60 mg/dL *The National Cholesterol Education Program(NCEP) 10 Reference Guidelines*: Optimal:........... <100 mg/dL Near Optimal....... 100-129 mg/dL Borderline High.... 130-159 mg/dL High............... 160-189 mg/dL Very High.......... >=190 mg/dL * Source: National Cholesterol Education Program (NCEP) 11 C34.32 R07.9 12 Note: Persistent reduction for 3 months or more in an eGFR <60 mL/min/1.73 m2 defines CKD. Patients with eGFR values >/=60 mL/min/1.73 m2 may also have CKD if evidence of persistent proteinuria is present. The original MDRD equation for estimated GFR is not valid for patients less than 18 years of age. Additional information may be found at [email or web address]. 13 NO GROWTH: FINAL REPORT 14 NO GROWTH: FINAL REPORT 15 UNK 16 MANDIE/Calcofluor preparation: no fungus observed 17 Rina dubliniensis Performed at: RN - [facility] [address] [id number] Pest Locator: Kisha Bustillos MD, Phone: [phone] 18 <10 SQUAMOUS EPITHELIAL CELLS/LPF 19 MODERATE GRAM NEGATIVE COCCI 20 FEW GRAM POSITIVE COCCI 21 RARE GRAM NEGATIVE BACILLI 22 RARE GRAM POS BACILLI SUGGESTIVE OF DIPTHEROIDS 23 RESPIRATORY ROSHNI 24 Note: Persistent reduction for 3 months or more in an eGFR <60 mL/min/1.73 m2 defines CKD. Patients with eGFR values >/=60 mL/min/1.73 m2 may also have CKD if evidence of persistent proteinuria is present. The original MDRD equation for estimated GFR is not valid for patients less than 18 years of age. Additional information may be found at [email or web address]. 25 Note: Persistent reduction for 3 months or more in an eGFR <60 mL/min/1.73 m2 defines CKD. Patients with eGFR values >/=60 mL/min/1.73 m2 may also have CKD if evidence of persistent proteinuria is present. The original MDRD equation for estimated GFR is not valid for patients less than 18 years of age. Additional information may be found at [email or web address]. 26 D64.9 27 C34.32 28 THERAPEUTIC INR RANGE: 2.0 - 3.0 DVT, Pulmonary embolus, prophylaxis against venous thrombosis or systemic embolization in high risk patients. 2.5 - 3.5 Mechanical heart valves 29 D64.9 30 Instrument flagged sample for slide review. Less than 10% Bands seen, no other immature WBC's seen. RBC morphology essentially normal. Platelet estimate=NORMAL 31 R91.1 32 Note: Persistent reduction for 3 months or more in an eGFR <60 mL/min/1.73 m2 defines CKD. Patients with eGFR values >/=60 mL/min/1.73 m2 may also have CKD if evidence of persistent proteinuria is present. The original MDRD equation for estimated GFR is not valid for patients less than 18 years of age. Additional information may be found at [email or web address]. 33 C34.32 34 Note: Persistent reduction for 3 months or more in an eGFR <60 mL/min/1.73 m2 defines CKD. Patients with eGFR values >/=60 mL/min/1.73 m2 may also have CKD if evidence of persistent proteinuria is present. The original MDRD equation for estimated GFR is not valid for patients less than 18 years of age. Additional information may be found at [email or web address]. 35 I10 36 Note: Persistent reduction for 3 months or more in an eGFR <60 mL/min/1.73 m2 defines CKD. Patients with eGFR values >/=60 mL/min/1.73 m2 may also have CKD if evidence of persistent proteinuria is present. The original MDRD equation for estimated GFR is not valid for patients less than 18 years of age. Additional information may be found at [email or web address]. 37 E78.5 Z11.59 38 Reference Guidelines*: Desirable: ........... < 200 mg/dL Borderline High: ..... 200-239 mg/dL High: ................ >=240 mg/dL * The National Cholesterol Education Program (NCEP) 39 Reference Guidelines*: Normal: ............. < 150 mg/dL Borderline High: .... 150-199 mg/dL High: ............... 200-499 mg/dL Very High: .......... > 500 mg/dL * Source: National Cholesterol Education Program (NCEP) 40 Reference Guidelines*: Low HDL: ..... < 40 mg/dL Normal: ..... 40-60 mg/dL Desirable: ... > 60 mg/dL *The National Cholesterol Education Program(NCEP) 41 Reference Guidelines*: Optimal:........... <100 mg/dL Near Optimal....... 100-129 mg/dL Borderline High.... 130-159 mg/dL High............... 160-189 mg/dL Very High.......... >=190 mg/dL * Source: National Cholesterol Education Program (NCEP) 42 INFCE Result Units: s/co ratio Negative: < 0.8 Indeterminate: 0.8 - 0.9 Positive: > 0.9 The CDC recommends that a positive HCV antibody result be followed up with a HCV Nucleic Acid Amplification test (223531). Performed at: RN - [facility] [address] [id number] Pest Locator: Kisha Bustillos MD, Phone: [phone] 43 c34.32 44 Note: Persistent reduction for 3 months or more in an eGFR <60 mL/min/1.73 m2 defines CKD. Patients with eGFR values >/=60 mL/min/1.73 m2 may also have CKD if evidence of persistent proteinuria is present. The original MDRD equation for estimated GFR is not valid for patients less than 18 years of age. Additional information may be found at www.[email or web address]. 45 Note: Persistent reduction for 3 months or more in an eGFR <60 mL/min/1.73 m2 defines CKD. Patients with eGFR values >/=60 mL/min/1.73 m2 may also have CKD if evidence of persistent proteinuria is present. The original MDRD equation for estimated GFR is not valid for patients less than 18 years of age. Additional information may be found at [email or web address]. 46 D64.81 47 05/13/17 1654: NEUT% previously reported as: 80.4 H % Amended result called to: [] 05/13/17 at 4 05/13/17 1654: LYMPH % previously reported as: 8.3 L % Amended result called to: [] 05/13/17 at 165305/13/17 1654: MONO % previously reported as: 10.0 % Amended result called to: [] 05/13/17 at 165305/13/17 1654: EO% previously reported as: 0.9 % Amended result called to: [] 05/13/17 at 4 05/13/17 1654: BAS% previously reported as: 0.4 % Amended result called to: [] 05/13/17 at 1654 48 Note: Persistent reduction for 3 months or more in an eGFR <60 mL/min/1.73 m2 defines CKD. Patients with eGFR values >/=60 mL/min/1.73 m2 may also have CKD if evidence of persistent proteinuria is present. The original MDRD equation for estimated GFR is not valid for patients less than 18 years of age. Additional information may be found at www.[email or web address]. 49 Values below the stated reference ranges of AST and ALT can be seen in normal populations. Clinical correlation is suggested. 50 C34.32 51 Note: Persistent reduction for 3 months or more in an eGFR <60 mL/min/1.73 m2 defines CKD. Patients with eGFR values >/=60 mL/min/1.73 m2 may also have CKD if evidence of persistent proteinuria is present. The original MDRD equation for estimated GFR is not valid for patients less than 18 years of age. Additional information may be found at www.[email or web address]. 52 D64.81 C34.32 53 Note: Persistent reduction for 3 months or more in an eGFR <60 mL/min/1.73 m2 defines CKD. Patients with eGFR values >/=60 mL/min/1.73 m2 may also have CKD if evidence of persistent proteinuria is present. The original MDRD equation for estimated GFR is not valid for patients less than 18 years of age. Additional information may be found at www.[email or web address]. 54 C34.32 55 Note: Persistent reduction for 3 months or more in an eGFR <60 mL/min/1.73 m2 defines CKD. Patients with eGFR values >/=60 mL/min/1.73 m2 may also have CKD if evidence of persistent proteinuria is present. The original MDRD equation for estimated GFR is not valid for patients less than 18 years of age. Additional information may be found at www.[email or web address]. 56 Instrument flagged sample for slide review. Less than 10% Bands seen, no other immature WBC's seen. Platelet estimate=NORMAL 57 Z51.81 58 Note: Persistent reduction for 3 months or more in an eGFR <60 mL/min/1.73 m2 defines CKD. Patients with eGFR values >/=60 mL/min/1.73 m2 may also have CKD if evidence of persistent proteinuria is present. The original MDRD equation for estimated GFR is not valid for patients less than 18 years of age. Additional information may be found at [email or web address]. 59 [facility] FAX [phone] DR TRACY BARNES FAX [phone] 60 Instrument flagged sample for slide review. Less than 10% Bands seen, no other immature WBC's seen. Platelet estimate=NORMAL 61 C34.32 Z51.11 E86.0 62 Note: Persistent reduction for 3 months or more in an eGFR <60 mL/min/1.73 m2 defines CKD. Patients with eGFR values >/=60 mL/min/1.73 m2 may also have CKD if evidence of persistent proteinuria is present. The original MDRD equation for estimated GFR is not valid for patients less than 18 years of age. Additional information may be found at [email or web address]. 63 STAT- TRACY BARNES [phone] PH [phone] FAX 64 C34.32 Z51.11 65 Note: Persistent reduction for 3 months or more in an eGFR <60 mL/min/1.73 m2 defines CKD. Patients with eGFR values >/=60 mL/min/1.73 m2 may also have CKD if evidence of persistent proteinuria is present. The original MDRD equation for estimated GFR is not valid for patients less than 18 years of age. Additional information may be found at www.[email or web address]. 66 Values below the stated reference ranges of AST and ALT can be seen in normal populations. Clinical correlation is suggested. 67 STAT-PORT DRAW CONCHIS MENCHACAKINS [employer] [phone] PH [phone] 68 Note: Persistent reduction for 3 months or more in an eGFR <60 mL/min/1.73 m2 defines CKD. Patients with eGFR values >/=60 mL/min/1.73 m2 may also have CKD if evidence of persistent proteinuria is present. The original MDRD equation for estimated GFR is not valid for patients less than 18 years of age. Additional information may be found at www.[email or web address]. 69 Instrument flagged sample for slide review. Less than 10% Bands seen, no other immature WBC's seen. Platelet estimate=NORMAL 70 Z51.11 C34.32 71 Note: Persistent reduction for 3 months or more in an eGFR <60 mL/min/1.73 m2 defines CKD. Patients with eGFR values >/=60 mL/min/1.73 m2 may also have CKD if evidence of persistent proteinuria is present. The original MDRD equation for estimated GFR is not valid for patients less than 18 years of age. Additional information may be found at www.[email or web address]. 72 C34.32 Z51.11 73 Note: Persistent reduction for 3 months or more in an eGFR <60 mL/min/1.73 m2 defines CKD. Patients with eGFR values >/=60 mL/min/1.73 m2 may also have CKD if evidence of persistent proteinuria is present. The original MDRD equation for estimated GFR is not valid for patients less than 18 years of age. Additional information may be found at www.[email or web address]. 74 STAT PORT DRAW CONCHIS MENCHACAKINS [employer] [phone] PH [phone] FAX 75 C34.32 76 Note: Persistent reduction for 3 months or more in an eGFR <60 mL/min/1.73 m2 defines CKD. Patients with eGFR values >/=60 mL/min/1.73 m2 may also have CKD if evidence of persistent proteinuria is present. The original MDRD equation for estimated GFR is not valid for patients less than 18 years of age. Additional information may be found at [email or web address]. 77 STAT TRACY BARNES [phone] PH [phone] FAX 78 Note: Persistent reduction for 3 months or more in an eGFR <60 mL/min/1.73 m2 defines CKD. Patients with eGFR values >/=60 mL/min/1.73 m2 may also have CKD if evidence of persistent proteinuria is present. The original MDRD equation for estimated GFR is not valid for patients less than 18 years of age. Additional information may be found at [email or web address]. 79 STAT CONCHIS Jin [phone] F [phone] PORT DRAW 80 THERAPEUTIC INR RANGE: 2.0 - 3.0 DVT, Pulmonary embolus, prophylaxis against venous thrombosis or systemic embolization in high risk patients. 2.5 - 3.5 Mechanical heart valves 81 C34.32 I10 J43.1 82 Note: Persistent reduction for 3 months or more in an eGFR <60 mL/min/1.73 m2 defines CKD. Patients with eGFR values >/=60 mL/min/1.73 m2 may also have CKD if evidence of persistent proteinuria is present. The original MDRD equation for estimated GFR is not valid for patients less than 18 years of age. Additional information may be found at [email or web address]. 83 LUNG MASS 84 THERAPEUTIC INR RANGE: 2.0 - 3.0 DVT, Pulmonary embolus, prophylaxis against venous thrombosis or systemic embolization in high risk patients. 2.5 - 3.5 Mechanical heart valves 85 LUNG MASS (J85.1) 86 Fungus Stain Final report Result 1 MANDIE/Calcofluor preparation: no fungus observed 87 Fungus (Mycology) Culture Preliminary report Result Fungus (Mycology) Culture Final report Result: No yeast or mold isolated after 4 weeks Performed at: - [facility] [address] [id number] Pest Locator: Kisha Bustillos MD, Phone: [phone] . 88 NO ORGANISMS SEEN 89 NO WHITE BLOOD CELLS 90 NO GROWTH: FINAL REPORT 91 CALC OF BILE DUCT 92 Note: Persistent reduction for 3 months or more in an eGFR <60 mL/min/1.73 m2 defines CKD. Patients with eGFR values >/=60 mL/min/1.73 m2 may also have CKD if evidence of persistent proteinuria is present. The original MDRD equation for estimated GFR is not valid for patients less than 18 years of age. Additional information may be found at [email or web address]. 93 Bal LLL Hard copy of report to be sent by mail Report may be viewed in Clinical Review, or in Pci under Medical Record Forms 94 LUNG MASS 95 Acid Fast Culture Negative No acid fast bacilli isolated after 6 weeks Performed at: [address] [id number] Pest Locator: Kisha Bustillos MD, Phone: [phone] . 96 Final report Result 1 MANDIE/Calcofluor preparation: no fungus observed 97 Fungus (Mycology) Culture Final report Result 1 No yeast or mold isolated after 4 weeks. Performed at: [address] [id number] Pest Locator: Kisha Bustillos MD, Phone: [phone] . 98 NO ORGANISMS SEEN RARE WHITE BLOOD CELLS 99 BAL LLL Hard copy of report to be sent by mail Report may be viewed in Clinical Review, or in PCI under Medical Record Forms 100 11:00 [facility] 06/21 44715 D38.1 RESCHEDULED 101 THERAPEUTIC INR RANGE: 2.0 - 3.0 DVT, Pulmonary embolus, prophylaxis against venous thrombosis or systemic embolization in high risk patients. 2.5 - 3.5 Mechanical heart valves 102 Is patient on heparin protocol? N Is patient on anticoagulants? Unknown 103 Instrument flagged sample for slide review. Less than 10% Bands seen, no other immature WBC's seen. RBC morphology essentially normal. Platelet estimate=MODERATE INCREASE 104 THERAPEUTIC INR RANGE: 2.0 - 3.0 DVT, Pulmonary embolus, prophylaxis against venous thrombosis or systemic embolization in high risk patients. 2.5 - 3.5 Mechanical heart valves 105 Z01.811, D38.1 106 Acid Fast Culture Negative No acid fast bacilli isolated after 6 weeks Performed at: [address] [id number] Pest Locator: Kisha Bustillos MD, Phone: [phone] . 107 <10 SQUAMOUS EPITHELIAL CELLS/LPF FEW GRAM POSITIVE COCCI 108 RESPIRATORY ROSHNI 109 BETA LACTAMASE NEGATIVE: PENICILLIN OR AMPICILLIN 110 BETA LACTAMASE POS: AMPICILLIN/SULBACTAM OR CEPHALOSPORIN. Procedures Date CPT Code Description Status Comment 06/26/2018 13697 EKG-Tracing And Report Completed 06/19/2018 06014 Irrigation Implanted Venous Completed Access Device For Drug System 06/19/2018 03653 Irrigation Implanted Venous Completed Access Device For Drug System 05/15/2018 31644 Collect Blood Specimen From Completed Completely Implant Venous Access Dev 04/17/2018 73194 Irrigation Implanted Venous Completed Access Device For Drug System 04/09/2018 Mammogram Completed Document: 04/09/18 - Screening Mammogram Bilateralbirads 2 02/20/2018 16561 Irrigation Implanted Venous Completed Access Device For Drug System 02/20/2018 85101 Collect Blood Specimen From Completed Completely Implant Venous Access Dev 01/28/2018 49936 Irrigation Implanted Venous Completed Access Device For Drug System 01/28/2018 42486 Irrigation Implanted Venous Completed Access Device For Drug System 12/04/2017 62636 Collect Blood Specimen From Completed Completely Implant Venous Access Dev 12/04/2017 72243 Irrigation Implanted Venous Completed Access Device For Drug System 12/04/2017 35867 Collect Blood Specimen From Completed Completely Implant Venous Access Dev 10/31/2017 32211 Irrigation Implanted Venous Completed Access Device For Drug System 10/31/2017 28099 Irrigation Implanted Venous Completed Access Device For Drug System 09/30/2017 37516 Collect Blood Specimen From Completed Completely Implant Venous Access Dev 09/30/2017 35565 Irrigation Implanted Venous Completed Access Device For Drug System 09/30/2017 46271 Collect Blood Specimen From Completed Completely Implant Venous Access Dev 09/05/2017 14817 Collect Blood Specimen From Completed Completely Implant Venous Access Dev 09/05/2017 82506 Collect Blood Specimen From Completed Completely Implant Venous Access Dev 09/05/2017 96796 Irrigation Implanted Venous Completed Access Device For Drug System 08/08/2017 90469 Irrigation Implanted Venous Completed Access Device For Drug System 08/08/2017 87941 Irrigation Implanted Venous Completed Access Device For Drug System 07/04/2017 31314 Irrigation Implanted Venous Completed Access Device For Drug System 07/04/2017 59992 Irrigation Implanted Venous Completed Access Device For Drug System 05/01/2017 28203 Ercp Removal Foreign Completed Body/Stent From Biliary/Pancreatic Duct 05/01/2017 99384 EGD With Biopsy Completed 04/04/2017 45561 Collect Blood Specimen From Completed Completely Implant Venous Access Dev 01/17/2017 02570 Insertion Tunneled Cent Completed Venous Cathr W Subcut Port 5 Yrs Or Oldr 01/15/2017 17185 Bronchospasm Provocation Completed Evaluation Multi Spirometric Determinati 01/15/2017 57899 Spirometry Completed 09/26/2016 29878 Ercp W/Trans-Endoscopic Completed Balloon Dilation Biliary/Pancreatic Duct 09/26/2016 89989 Ercp W/ Placement Completed Endoscopic Stent Biliary/Pancreatic Duct 08/14/2016 56225 Eye Exam New Patient Completed Comprehensive 08/06/2016 34026 Stress Test Interpre And Completed Report Only 08/06/2016 03155 Stress Test Physician Super Completed Only 08/06/2016 44485 Stress Test Physician Super Completed Only 08/06/2016 82640 Myocardial Imaging Completed Tomographic Multiple Study AT Rest Or Stress 07/31/2016 44731 EKG-Tracing And Report Completed 07/25/2016 56444 Echocardiogram Complete Completed 06/21/2016 71312 Bronchoscopy, with Completed transbronchial lung biopsyx, single lobe 06/21/2016 38170 Bronchoscopy;Diag./Flex Or Completed Rigid 06/20/2016 35556 EKG Interpretation And Completed Report Only 03/06/2016 Mammogram Completed 02/23/2016 80338 Bronchospasm Provocation Completed Evaluation Multi Spirometric Determinati 02/23/2016 02354 Spirometry Completed 11/25/2012 Mammogram Completed Encounters Type Date Location Provider CPT E/M Dx Office Visit 06/26/2018 3:00p [place] [address] I10 R07.9 F17.200 J44.9 E78.5 Office Visit 06/16/2018 1:30p Physical Medicine Symone Kirk M.D. 56931 B44.9 Infectious Disease C79.51 F17.210 R07.9 Z71.6 Office Visit 06/10/2018 2:45p [place] [address] C34.32 B44.9 Office Visit 05/15/2018 3:15p [place] [address] C34.32 C79.51 Office Visit 05/05/2018 2:15p Physical Medicine Symone Kirk M.D. 20700 R07.9 Infectious Disease B44.9 C34.32 F17.210 Office Visit 05/02/2018 1:45p [place] [address] C34.32 B44.9 R07.9 G89.3 Office Visit 03/26/2018 2:15p Physical [facility] Symone Ramirez M.D. 42939 B44.9 Infectious Disease C34.32 F17.210 I10 Office Visit 03/14/2018 11:30a Family Medicine Suha Ferrari M.D. 18803 I10 E78.5 Z12.31 Z13.820 Office Visit 02/27/2018 9:30a [place] [address] B44.9 R05 C34.32 Office Visit 02/19/2018 2:15p Physical [facility] Symone Ramirez M.D. 18070 B44.9 Infectious Disease R05 I10 F17.210 R07.9 C34.32 Office Visit 02/13/2018 11:30[place] [address] J44.9 C34.32 B44.9 F17.210 Z71.6 Office Visit 01/28/2018 10:30a [place] [address] B44.9 D64.9 R91.1 R05 Office Visit 01/13/2018 1:15p Physical [facility] & Symone Ramirez M.D. 27416 B44.9 Infectious Disease C34.32 J44.9 Office Visit 01/07/2018 1:00p [place] [address] C34.32 B44.9 D64.9 Office Visit 12/16/2017 9:30a [place] [address] C34.32 J44.9 D64.9 F41.9 B44.9 Office Visit 11/28/2017 1:45p [place] [address] C34.32 J44.9 D64.9 F41.9 R91.1 Office Visit 11/19/2017 10:30a [place] [address] C34.32 J44.9 D64.9 G89.3 F41.9 Office Visit 09/30/2017 10:30[place] [address] J44.9 R05 Office Visit 08/28/2017 11:00a [facility] Suha Ferrari M.D. 50012 I10 F17.210 Z71.6 Office Visit 08/05/2017 1:30[place] [address] J44.9 C34.32 F17.210 Z71.6 Office Visit 07/01/2017 10:30a [place] [address] C34.32 D70.1 R11.2 Office Visit 06/17/2017 11:00a [place] [address] C34.32 G62.0 D70.1 R11.2 D64.81 Office Visit 06/04/2017 10:00a Infusion Center Conchis Aguilar [employer] 23635 C34.32 G62.0 Office Visit 05/28/2017 8:30a Infusion Center Conchis Aguilar, [employer] 36814 Z51.11 C34.32 G62.0 E83.42 E87.6 D70.1 Office Visit 05/27/2017 9:45a [place] [address] C34.32 D70.1 R11.2 D64.81 G62.0 G89.3 Office Visit 05/13/2017 10:45a [place] [address] C34.32 D64.81 M54.6 D70.1 R11.2 G62.0 Office Visit 05/06/2017 10:30a [place] [address] C34.32 D64.81 M54.6 Office Visit 04/24/2017 2:00p [facility] Suha Smallwood M.D. 03895 J44.9 C34.32 E78.5 I10 Office Visit 04/18/2017 9:30a [place] [address] C34.32 D64.81 M54.6 D70.1 Office Visit 04/04/2017 9:45a [place] [address] C34.32 C34.32 D64.81 D64.81 R11.2 R11.2 M54.6 M54.6 M25.472 Office Visit 03/28/2017 3:15[place] [address] K80.50 R13.10 Office Visit 03/21/2017 9:45a [place] [address] C34.32 D64.81 R11.2 M54.6 R06.02 D70.1 T45.1x5D E83.42 Office Visit 03/14/2017 9:45a [place] [address] C34.32 R06.02 D64.9 R11.2 M54.6 R19.7 Office Visit 03/07/2017 11:00a [place] [address] Z51.11 C34.32 D64.81 E87.6 Office Visit 03/05/2017 11:30a [place] [address] C34.32 D64.9 R11.2 M54.6 R19.7 Office Visit 02/28/2017 10:30a [place] [address] Z51.11 C34.32 D64.81 E86.0 J06.9 E87.6 Office Visit 02/25/2017 9:45a [place] [address] C34.32 J06.9 D64.9 R11.2 M54.6 L29.8 Office Visit 02/20/2017 10:30a [place] [address] Z51.11 C34.32 D64.9 Office Visit 02/19/2017 2:00p [place] [address] C34.32 R11.2 D64.9 D70.1 T45.1x5D Office Visit 02/13/2017 10:00a [place] [address] Z51.11 C34.32 R11.2 R19.7 Office Visit 02/11/2017 9:30a [place] [address] C34.32 M54.6 D64.9 R11.2 L29.8 Office Visit 02/06/2017 10:30a Oncology Office Conchis Aguilar, [employer] 84539 Z51.11 C34.32 R11.2 E83.42 Office Visit 02/04/2017 9:30a [place] [address] C34.32 R11.2 M54.6 D64.9 L29.8 Office Visit 01/31/2017 1:30[place] [address] J44.9 C34.32 F17.200 Z71.6 R07.9 Office Visit 01/30/2017 9:00a Oncology Office Conchis Aguilar, [employer] 37564 Z51.11 C34.32 R11.2 R10.11 Office Visit 01/28/2017 9:45a [place] [address] C34.32 J44.9 R11.2 F17.200 R05 Office Visit 01/23/2017 9:30a Oncology Office Conchis Aguilar, [employer] 05732 Z51.11 C34.32 R11.2 E83.42 R05 Office Visit 01/21/2017 9:45a [place] [address] C34.32 Z71.6 J44.9 M54.6 Office Visit 01/16/2017 10:00a Surgical Office Gaurav Mercer MD,FACS 75994 C34.32 Office Visit 01/14/2017 1:45p [place] [address] C34.32 Z71.6 J44.9 R11.2 M54.6 D70.1 Office Visit 12/26/2016 1:00p [place] [address] C34.32 J85.1 J44.9 Z71.6 F41.9 Office Visit 12/26/2016 2:45[place] [address] J44.9 C34.32 F17.210 Z71.6 Office Visit 09/20/2016 1:15[place] [address] K80.51 Office Visit 09/04/2016 9:30[place] [address] K80.51 Office Visit 08/21/2016 1:30[place] [address] J44.9 J85.1 F17.210 Z71.6 Office Visit 07/31/2016 1:30p [place] [address] R07.9 F17.210 R94.31 Z71.6 Office Visit 07/30/2016 1:15p Physical Medicine & Symone Ramirez M.D. 80447 J85.1 Infectious Disease A49.2 F17.210 J44.9 R19.7 Office Visit 07/19/2016 2:45p [place] [address] J85.1 F17.210 Z71.6 J44.9 Office Visit 07/17/2016 3:30[place] [address] R19.7 R93.3 Z71.6 F17.200 Office Visit 06/13/2016 1:00p [place] [address] D38.1 J44.9 Z01.811 F17.210 Z71.6 Plan of Care Future Appointment(s):09/03/2018 1:15 pm - Kaitlin Escobar MD at Cardiology Ijpfmj8307/17/2018 2:00 pm - Oncology Nurse at Oncology Hveypk9012/18/2018 3:30 pm - Jad Blanco MD at Mrwujgfqwhy23/10/2018 3:30 pm - Symone Ramirez M.D. at Physical Medicine & Infectious Bqywwgg5208/11/2018 10:30 am - Tracy Banres DO at Oncology Fijmvq1309/17/2018 1:30 pm - Janay Galarza MD at [facility]06/26/2018 - Page [place], PAI10 Essential (primary) hypertensionComments:I am hesitant to stop diltiazem given her borderline elevated resting HR. Will stop lisinopril. She will monitor her BP at home and call with readings in 1-2 weeks.R07.9 Chest pain, unspecifiedComments:Monitor. No role for repeat ischemic testing at this time.F17.200 Nicotine dependence, unspecified, uncomplicatedComments:She has no desire to quit despite history of COPD and lung cancer.J44.9 Chronic obstructive pulmonary disease, unspecifiedComments:Followed by Dr. Blanco.E78.5 Hyperlipidemia, unspecifiedComments:Followed by PCP.AllFollow up:2 months
--- OUTSIDE RECORDS SUMMARY | 2018-07-23 18:15 | XMS REPORT ---
:1950 External Reference #:[id number] Author Organization [facility] Address [address], [address] [place] [address] Phone [phone] Care Team Providers Name Role Phone Suha Ferrari M.D. Care Team Information Jackscrew Man Unavailable Janay Galarza MD Primary Care Physician Unavailable Payers Type Date Identification Numbers Payment Provider Subscriber Medicare Primary Effective: Policy Number: Medicare Shirin Frankel 2018 [id number] PayID: [id number] [address] [place] [address] Medicare Primary Expires: 2018 Policy Number: [id number] Medicare Shirin Frankel PayID: [id number] [address] [place] [address] Medicaid Policy Number: [id number] Medicaid Shirin Frankel PayID: [id number] [address] [place] [address] Commercial Expires: 2016 Policy Number: [id number] [place] Shirin Frankel PayID: [id number] [address] [address] [place] [address] Problems Date Description Provider Status Onset: 06/11/2016 [...] M.D. min prior to imaging Reference #: [id number] Vitamin D 03/16 Active Capsules [id number] 8caps 1 cap Po q , (Ergocalciferol) week Shalom Borden Blood Pressure 03/14 Active Misc 1unit check bp , Cuff s every Suha, daily M.D. until stable Tessalon Perles 01/28 Active Capsules 100mg 90cap 1 jimenez by R05 s mouth Trcay, three DO times a day as needed [...] apply Boal, margaret Santos, - to DO 03/26[facility] at least one hour [facility] 01/28 Hx Capsules 100mg 90cap 1 jimenez PO R05 vanita s tid prn Tracy, cough DO Prochlorperazine 01/14 Hx Tablets 10mg 120ta 1 tablet R11.2 Molly, Male bs by mouth Tracy, every 6 DO hours as needed nausea Prochlorperazine 01/14 Hx Tablets 10mg 120ta 1 tablet R11.2 Deandrepenhernandez, Male bs by mouth Tracy, - every 6 DO 01/14 hours as needed nausea [place] 01/14 Hx Tablets 5-325mg 60tab 1 tab [...] CPT Code Status Date Vaccine Lot # [id number] Given 06/28/2017 Influenza Vaccine Split Virus Preservative Free Im [id number] Use Vital Signs Date Vital Result Comment 06/26/2018 BP Systolic Sitting Left Arm 104 mmHg BP Diastolic Sitting Left Arm 80 mmHg Heart Rate 93 /min Respiratory Rate 14 /min Height 60 inches 5'0" Weight 102.00 lb BMI (Body Mass Index) 19.9 kg/m2 BSA (Body Surface Area) 1.40 m2 Mears body weight in kilograms 45 O2 % BldC Oximetry 93 % 06/19/2018 BP Systolic Sitting Left Arm 125 mmHg BP Diastolic Sitting Left Arm 65 mmHg Heart Rate 95 /min Respiratory Rate 20 /min Height 60 inches 5'0" Weight 102.00 lb BMI (Body Mass Index) 19.9 kg/m2 BSA (Body Surface Area) 1.40 m2 Mears body weight in kilograms 45 O2 % [...] kg/m2 BSA (Body Surface Area) 1.42 m2 Mears body weight in kilograms 45 05/02/2018 BP [...] kg/m2 BSA (Body Surface Area) 1.42 m2 Mears body weight in kilograms 45 02/13/2018 BP [...] kg/m2 BSA (Body Surface Area) 1.42 m2 Mears body weight in kilograms 45 O2 % [...] kg/m2 BSA (Body Surface Area) 1.43 m2 Mears body weight in kilograms 45 08/05/2017 BP [...] kg/m2 BSA (Body Surface Area) 1.44 m2 Mears body weight in kilograms 45 O2 % [...] kg/m2 BSA (Body Surface Area) 1.50 m2 Mears body weight in kilograms 45 O2 % [...] kg/m2 BSA (Body Surface Area) 1.51 m2 Mears body weight in kilograms 45 O2 % [...] kg/m2 BSA (Body Surface Area) 1.51 m2 Mears body weight in kilograms 45 O2 % [...] kg/m2 BSA (Body Surface Area) 1.51 m2 Mears body weight in kilograms 45 01/14/2017 BP [...] kg/m2 BSA (Body Surface Area) 1.45 m2 Mears body weight in kilograms 45 O2 % [...] kg/m2 BSA (Body Surface Area) 1.53 m2 Mears body weight in kilograms 47 09/20/2016 BP [...] kg/m2 BSA (Body Surface Area) 1.53 m2 Mears body weight in kilograms 45 O2 % [...] Lymph % 13.0 % Low 20.0-42.0 1 [place] % 11.1 % 4.3-13.2 1 Eo% 2.1 % 0.0-6.6 1 Bas% 0.5 % 0.0-1.1 1 Neut# 5.50 K/uL 1.8-7.0 1 Lymph # 0.98 K/uL Low 1.0-4.0 1 [place] # 0.83 K/uL 0.3-0.9 1 Eos # [...] Lymph % 14.1 % Low 20.0-42.0 3 [place] % 10.0 % 4.3-13.2 3 Eo% 2.3 % 0.0-6.6 3 Bas% 0.6 % 0.0-1.1 3 Neut# 6.13 K/uL 1.8-7.0 3 Lymph # 1.18 K/uL 1.0-4.0 3 [place] # 0.84 K/uL 0.3-0.9 3 Eos # [...] Lymph % 13.7 % Low 20.0-42.0 26 [place] % 10.3 % 4.3-13.2 26 Eo% 1.5 % 0.0-6.6 26 Bas% 0.5 % 0.0-1.1 26 Neut# 5.61 K/uL 1.8-7.0 26 Lymph # 1.04 K/uL 1.0-4.0 26 [place] # 0.78 K/uL 0.3-0.9 26 Eos # [...] Lymph % 12.7 % Low 20.0-42.0 29 [place] % 9.4 % 4.3-13.2 29 Eo% 2.7 % 0.0-6.6 29 Bas% 0.4 % 0.0-1.1 29 Neut# 7.21 K/uL High 1.8-7.0 29 Lymph # 1.23 K/uL 1.0-4.0 29 [place] # 0.91 K/uL High 0.3-0.9 29 Eos [...] Lymph % 16.7 % Low 20.0-42.0 33 [place] % 13.5 % High 4.3-13.2 33 Eo% 2.2 % 0.0-6.6 33 Bas% 0.4 % 0.0-1.1 33 Neut# 4.49 K/uL 1.8-7.0 33 Lymph # 1.12 K/uL 1.0-4.0 33 [place] # 0.90 K/uL 0.3-0.9 33 Eos # [...] Lymph % 13.3 % Low 20.0-42.0 43 [place] % 13.0 % 4.3-13.2 43 Eo% 0.7 % 0.0-6.6 43 Bas% 0.8 % 0.0-1.1 43 Neut# 5.25 K/uL 1.8-7.0 43 Lymph # 0.97 K/uL Low 1.0-4.0 43 [place] # 0.95 K/uL High 0.3-0.9 43 Eos [...] Lymph % 16.5 % Low 20.0-42.0 43 [place] % 16.7 % High 4.3-13.2 43 Eo% 1.1 % 0.0-6.6 43 Bas% 1.0 % 0.0-1.1 43 Neut# 4.04 K/uL 1.8-7.0 43 Lymph # 1.03 K/uL 1.0-4.0 43 [place] # 1.04 K/uL High 0.3-0.9 43 Eos [...] Lymph # 0.71 K/uL Low 1.0-4.0 46 [place] # 0.85 K/uL 0.3-0.9 46 Eos # [...] Alkaline Phosphatase 172 U/L High 45-117 46 Differential-WBC Confirm 05/13/2017 Total Cells Counted 100 #CELLS 46 Myelocyte% 1 % High -0 46 Band% 11 % High 0-8 46 Neutrophils% 72 % 33-73 46 Lymph% 10 % Low 20-42 46 Monocyte% 5 % 0-10 46 Eosinophil% 1 % 0-5 46 Platelet Estimate NORMAL 46 Toxic Granulation 0-1+ 46 Laboratory test finding 05/13/2017 Slide Review DIFF ORDERED 46 Comprehensive Metabolic Panel 05/06/2017 Glucose 139 mg/dL [...] Alkaline Phosphatase 128 U/L High 45-117 50 Iron-Tibc-%Sat 05/06/2017 Serum Iron 37 g/dL Low 50-170 50 Total Iron Binding Capacity 359 g/dL 250-450 50 Transferrin %Saturation 10 % Low 12-57 50 CBS W/Automated Diff 05/06/2017 White Blood [...] Lymph % 12.0 % Low 20.0-42.0 50 [place] % 14.5 % High 4.3-13.2 50 Eo% 1.1 % 0.0-6.6 50 Bas% 0.5 % 0.0-1.1 50 Neut# 5.31 K/uL 1.8-7.0 50 Lymph # 0.89 K/uL Low 1.0-4.0 50 [place] # 1.07 K/uL High 0.3-0.9 50 Eos [...] Lymph % 14.1 % Low 20.0-42.0 52 [place] % 12.3 % 4.3-13.2 52 Eo% 2.2 % 0.0-6.6 52 Bas% 0.5 % 0.0-1.1 52 Neut# 4.42 K/uL 1.8-7.0 52 Lymph # 0.88 K/uL Low 1.0-4.0 52 [place] # 0.77 K/uL 0.3-0.9 52 Eos # [...] Lymph % 3.4 % Low 20.0-42.0 54 [place] % 8.8 % 4.3-13.2 54 Eo% 0.7 % 0.0-6.6 54 Bas% 0.1 % 0.0-1.1 54 Neut# 8.72 K/uL High 1.8-7.0 54 Lymph # 0.34 K/uL Low 1.0-4.0 54 [place] # 0.88 K/uL 0.3-0.9 54 Eos # [...] Lymph % 7.4 % Low 20.0-42.0 57 [place] % 10.8 % 4.3-13.2 57 Eo% 0.2 % 0.0-6.6 57 Bas% 0.0 % 0.0-1.1 57 Neut# 10.00 K/uL High 1.8-7.0 57 Lymph # 0.91 K/uL Low 1.0-4.0 57 [place] # 1.33 K/uL High 0.3-0.9 57 Eos [...] Lymph % 6.8 % Low 20.0-42.0 61 [place] % 14.5 % High 4.3-13.2 61 Eo% 0.3 % 0.0-6.6 61 Bas% 0.6 % 0.0-1.1 61 Neut# 2.52 K/uL 1.8-7.0 61 Lymph # 0.22 K/uL Low 1.0-4.0 61 [place] # 0.47 K/uL 0.3-0.9 61 Eos # [...] Lymph % 14.2 % Low 20.0-42.0 64 [place] % 11.6 % 4.3-13.2 64 Eo% 0.3 % 0.0-6.6 64 Bas% 0.0 % 0.0-1.1 64 Neut# 2.61 K/uL 1.8-7.0 64 Lymph # 0.50 K/uL Low 1.0-4.0 64 [place] # 0.41 K/uL 0.3-0.9 64 Eos # 0.01 K/uL 0.0-0.5 64 Baso # 0.00 K/uL 0.0-0.1 64 Laboratory test finding 02/28/2017 Magnesium 1.4 mg/dL Low 1.8-2.4 64, 67 RBC Morphology Only 02/20/2017 Hypochromia 0-1+ 64 Anisocytosis 0-1+ 64 Macrocytosis 0-1+ 64 Laboratory test finding 02/20/2017 Slide Review . 64, 68 Comprehensive Metabolic Panel 02/20/2017 Glucose 96 mg/dL 74-106 64 BUN 11 mg/dL 7-18 64 Creatinine 0.7 mg/dL 0.6-1.3 64 Glom Filtration Rate, Estimate >60 mL/min >60 64 If >60 mL/min >60 64, 69 BUN/Creat 15.7 ratio 64 Sodium 136 mmol/L [...] 64 Alkaline Phosphatase 99 U/L 45-117 64 CBS W/Automated Diff 02/20/2017 White Blood Count [...] Lymph % 10.5 % Low 20.0-42.0 64 [place] % 7.7 % 4.3-13.2 64 Eo% 1.4 % 0.0-6.6 64 Bas% 0.6 % 0.0-1.1 64 Neut# 2.90 K/uL 1.8-7.0 64 Lymph # 0.38 K/uL Low 1.0-4.0 64 [place] # 0.28 K/uL Low 0.3-0.9 64 Eos # 0.05 K/uL 0.0-0.5 64 Baso # 0.02 K/uL 0.0-0.1 64 CBS W/Automated Diff 02/13/2017 White Blood Count [...] Lymph % 11.3 % Low 20.0-42.0 70 [place] % 15.3 % High 4.3-13.2 70 Eo% 1.6 % 0.0-6.6 70 Bas% 1.3 % High 0.0-1.1 70 Neut# 2.67 K/uL 1.8-7.0 70 Lymph # 0.43 K/uL Low 1.0-4.0 70 [place] # 0.58 K/uL 0.3-0.9 70 Eos # 0.06 K/uL 0.0-0.5 70 Baso # 0.05 K/uL 0.0-0.1 70 Comprehensive Metabolic Panel 02/13/2017 Glucose 105 mg/dL [...] 107 U/L 45-117 70 CBS W/Automated Diff 02/06/2017 White Blood [...] Lymph % 10.2 % Low 20.0-42.0 72 [place] % 9.2 % 4.3-13.2 72 Eo% 3.1 % 0.0-6.6 72 Bas% 0.7 % 0.0-1.1 72 Neut# 4.54 K/uL 1.8-7.0 72 Lymph # 0.60 K/uL Low 1.0-4.0 72 [place] # 0.54 K/uL 0.3-0.9 72 Eos # [...] Magnesium 1.7 mg/dL Low 1.8-2.4 72, 74 RDW RBC Auto-Rto 01/30/2017 RDW RBC Auto-Rto 13.7 11.7-14.4 Sodium SerPl-sCnc 01/30/2017 Sodium SerPl-sCnc 138 136-145 WBC # Bld Auto 01/30/2017 WBC # Bld Auto 8.0 3.1-10.7 Albumin SerPl-mCnc 01/30/2017 Albumin SerPl-mCnc 3.6 3.4-5.0 Ast SerPl-cCnc 01/30/2017 Ast SerPl-cCnc 17 15-37 Alt SerPl-cCnc 01/30/2017 Alt SerPl-cCnc 19 12-78 Alp SerPl-cCnc 01/30/2017 Alp SerPl-cCnc 111 45-117 Laboratory test finding 01/30/2017 Magnesium 1.6 mg/dL Low 1.8-2.4 75, 76 Comprehensive Metabolic 01/30/2017 Glucose 119 mg/dL High 74-106 75 Panel BUN 16 mg/dL 7-18 75 Creatinine 0.7 mg/dL 0.6-1.3 75 Glom Filtration Rate, Estimate >60 mL/min >60 75 If >60 mL/min >60 75, 77 BUN/Creat 22.8 ratio 75 Sodium 138 mmol/L [...] 75 Alkaline Phosphatase 111 U/L 45-117 75 CBS W/Automated Diff 01/30/2017 White Blood Count [...] Lymph % 11.6 % Low 20.0-42.0 75 [place] % 9.9 % 4.3-13.2 75 Eo% 2.9 % 0.0-6.6 75 Bas% 0.6 % 0.0-1.1 75 Neut# 6.01 K/uL 1.8-7.0 75 Lymph # 0.93 K/uL Low 1.0-4.0 75 [place] # 0.79 K/uL 0.3-0.9 75 Eos # 0.23 K/uL 0.0-0.5 75 Baso # 0.05 K/uL 0.0-0.1 75 Potassium SerPl-sCnc 01/30/2017 Potassium SerPl-sCnc 4.0 3.5-5.1 Platelet # Bld Auto 01/30/2017 Platelet # Bld Auto 267 150-400 PMV Bld Auto 01/30/2017 PMV Bld Auto 10.5 8.9-12.4 Neutrophils/leuk NFr Bld 01/30/2017 Neutrophils/leuk NFr 75.0 High 40.4- 72.8 Auto Bld Auto Neutrophils # Bld Auto 01/30/2017 Neutrophils # Bld Auto 6.01 1.8-7.0 Monocytes/leuk NFr Bld 01/30/2017 Monocytes/leuk NFr Bld 9.9 4.3-13.2 Auto Auto Monocytes # Bld Auto 01/30/2017 Monocytes # Bld Auto 0.79 0.3-0.9 MCV RBC Auto 01/30/2017 MCV RBC Auto 93.7 80.9-99.0 MCHC RBC Auto-mCnc 01/30/2017 MCHC RBC Auto-mCnc 33.0 30.8-34.3 MCH RBC Qn Auto 01/30/2017 MCH RBC Qn Auto 30.9 25.9-32.7 Lymphocytes/leuk NFr Bld 01/30/2017 Lymphocytes/leuk NFr 11.6 Low 20.0- 42.0 Auto Bld Auto Lymphocytes # Bld Auto 01/30/2017 Lymphocytes # Bld Auto 0.93 Low 1.0-4.0 Hgb Bld-mCnc 01/30/2017 Hgb Bld-mCnc 11.7 11.6-15.8 Hct VFr Bld Auto 01/30/2017 Hct VFr Bld Auto 35.5 Low 36.0-46.1 Glucose [mass/volume] in 01/30/2017 Glucose [mass/volume] 119 High 74-106 serum or plasma in serum or plasma Globulin Ser Calc-mCnc 01/30/2017 Globulin Ser Calc-mCnc 3.8 1.9-4.3 Eosinophil/leuk NFr Bld 01/30/2017 Eosinophil/leuk NFr Bld 2.9 0.0-6.6 Auto Auto Eosinophil # Bld Auto 01/30/2017 Eosinophil # Bld Auto 0.23 0.0-0.5 Creat SerPl-mCnc 01/30/2017 Creat SerPl-mCnc 0.7 0.6-1.3 Chloride SerPl-sCnc 01/30/2017 Chloride SerPl-sCnc 103 98-107 Calcium SerPl-mCnc 01/30/2017 Calcium SerPl-mCnc 9.2 8.5-10.1 Co2 SerPl-sCnc 01/30/2017 Co2 SerPl-sCnc 26 21-32 Bilirub SerPl-mCnc 01/30/2017 Bilirub SerPl-mCnc 0.6 0.2-1.0 Basophils/leuk NFr Bld 01/30/2017 Basophils/leuk NFr Bld 0.6 0.0-1.1 Auto Auto Basophils # Bld Auto 01/30/2017 Basophils # Bld Auto 0.05 0.0-0.1 BUN/Creat SerPl 01/30/2017 BUN/Creat SerPl 22.8 BUN SerPl-mCnc 01/30/2017 BUN SerPl-mCnc 16 7-18 Anion Gap SerPl-sCnc 01/30/2017 Anion Gap SerPl-sCnc 9 8-16 Albumin/Glob SerPl 01/30/2017 Albumin/Glob SerPl 0.9 RDW RBC Auto 01/30/2017 RDW RBC Auto 45.3 3-47 RBC # Bld Auto 01/30/2017 RBC # Bld Auto 3.79 Low 3.90-5.40 Prot SerPl-mCnc 01/30/2017 Prot SerPl-mCnc 7.4 6.4-8.2 CBS W/Automated Diff 01/23/2017 White Blood Count [...] Lymph % 15.7 % Low 20.0-42.0 75 [place] % 14.0 % High 4.3-13.2 75 Eo% 1.7 % 0.0-6.6 75 Bas% 0.8 % 0.0-1.1 75 Neut# 4.01 K/uL 1.8-7.0 75 Lymph # 0.93 K/uL Low 1.0-4.0 75 [place] # 0.83 K/uL 0.3-0.9 75 Eos # [...] Therapy? YES 75 Date of Last Dose: [id number] 75 Time of Last Dose: 0700 75 Protime 01/16/2017 Protime 13.1 seconds 12.0-14.4 75 Inr 1.0 0.9-1.1 75, 80 Anticoagulant Therapy? YES 75 Date of Last Dose: [id number] Time of Last Dose: 0700 75 Act Partial Thrombo 01/16/2017 Act Partial Thrombo 48.4 seconds High 23.4- 35.0 75 Time Time Anticoagulant Therapy? YES 75 Date of Last Dose: [id number] 75 Time of Last Dose: 0700 75 [...] 81 Lymph % 23.9 % 20.0-42.0 81 [place] % 9.5 % 4.3-13.2 81 Eo% 1.9 % 0.0-6.6 81 Bas% 1.1 % 0.0-1.1 81 Neut# 5.44 K/uL 1.8-7.0 81 Lymph # 2.04 K/uL 1.0-4.0 81 [place] # 0.81 K/uL 0.3-0.9 81 Eos # [...] 81 Alkaline Phosphatase 103 U/L 45-117 81 Routine Culture W/ Gram 11/12/2016 Gram Stain NO ORGANISMS SEE <SEE NOTE> 83, 84 Stain Gram Stain NO WHITE BLOOD C <SEE NOTE> 83, 85 Aerobic Culture NO GROWTH: FINAL <SEE NOTE> 83, 86 Fungal Culture With 11/12/2016 Fungal Fluorochrome Stain Fungus Stain 83, 87 Smear <SEE NOTE> Fungal Culture; Other Sources Fungus (Mycology <SEE NOTE> 83, 88 Protime 11/12/2016 Protime 12.4 seconds 12.0-14.4 89 Inr 0.9 0.9-1.1 89, 90 Comprehensive Metabolic Panel 09/20/2016 Glucose 87 [...] 91 Lymph % 21.2 % 17.0-46.1 91 [place] % 9.0 % 4.3-13.2 91 Eo% 2.8 % 0.0-6.6 91 Bas% 1.2 % High 0.0-1.1 91 Neut# 6.02 K/uL 1.8-7.0 91 Lymph # 1.94 K/uL 1.8-7.0 91 [place] # 0.82 K/uL 0.3-0.9 91 Eos # [...] White Blood Count 10.7 3.1-10.7 Laboratory test finding 06/21/2016 Pathology Specimen (SEE NOTE) 93, 94 Laboratory test finding 06/21/2016 Pathology Specimen Result See Note 95 Fungal Culture With 06/21/2016 Fungal Fluorochrome Stain Fungus Stain 93, 96 Smear Fungal Culture; Other Sources Fungus (Mycology <SEE NOTE> 93, 97 Anaerobic Culture W/ GR 06/21/2016 Gram Stain NO ORGANISMS SEE <SEE 93 , 98 Stain NOTE> Anaerobic Culture NO GROWTH 93 Laboratory test 06/21/2016 Anaerobic Culture Organism: No finding Growth [employer] Smear And 06/21/2016 Afb Culture Acid Fast Cultur 93, 99 Culture <SEE NOTE> Laboratory test 06/20/2016 Inr International 1.0 0.9-1.1 finding Normalized Ratio Prothrombin Time 12.7 12.0-14.4 Laboratory test 06/20/2016 Act Partial 44.5 seconds High 23.4-35.0 100, 101 finding Thrombo Time Protime 06/20/2016 Protime 12.7 seconds 12.0-14.4 100 Inr 1.0 0.9-1.1 100, 102 Protime 06/13/2016 Protime 12.4 seconds 12.0-14.4 Inr 0.9 0.9-1.1 103 @[facility] Pat Id: [id number] @[facility] Req #: [id number] Anticoagulant Therapy? NO Act Partial Thrombo 06/13/2016 Act Partial Thrombo 46.4 seconds High 23.4- 35.0 Time Time @[facility] Pat Id: [id number] @[facility] Req #: [id number] Anticoagulant Therapy? NO Slide Review 06/13/2016 Slide Review (SEE NOTE) 104 @[facility] Pat Id: [id number] @[facility] Req #: [id number] Anticoagulant Therapy? NO Respiratory Culture W/Gram St 06/13/2016 Gram Stain >25 WBC/LPF 105, 106 Respiratory Culture RESPIRATORY LÁZARO <SEE NOTE> 105, 107 Beta Lactamase (Cefinase) NEGATIVE 105 Recommended Therapy: BETA LACTAMASE N <SEE NOTE> 105, 108 Hae2 BETA LACTAMASE P <SEE NOTE> 105, 109 Quantity MODERATE 105 Afb Smear And 06/13/2016 Afb Culture Acid Fast Cultur 105, 110 Culture <SEE NOTE> CBS W/Automated 06/13/2016 White Blood Count 13.0 K/uL High 3.1-10.7 Diff Red Blood Count 3.86 M/uL Low 3.90-5.40 [...] 40.4-72.8 Lymph % 12.5 % Low 17.0-46.1 [place] % 8.3 % 4.3-13.2 Eo% 4.6 % 0.0-6.6 Bas% 1.2 % High 0.0-1.1 Neut# 9.52 K/uL High 1.8-7.0 Lymph # 1.62 K/uL Low 1.8-7.0 [place] # 1.08 K/uL High 0.3-0.9 Eos # 0.59 K/uL High 0.0-0.5 Baso # 0.15 K/uL High 0.0-0.1 @[facility] Id: [id number] @[facility] Req #: [id number] Anticoagulant Therapy? NO Laboratory test finding 05/31/2016 Phosphorus Level 2.0 [...] D deficiency has been defined by the [place] [employer] and an Endocrine Society practice guideline as a level of serum 25-OH vitamin D less than 20 ng/mL (1,2). The Endocrine Society went on to further define vitamin D insufficiency as a level between 21 and 29 ng/mL (2). 1. IOM ([place] [employer]). 2010. Dietary reference intakes for calcium and D. [place]: The National Academies Press. 2. Jaiden MF, Alexandra NC, Mariam-Andrew TRAYLOR, et al. Evaluation, treatment, and prevention of vitamin D deficiency: an Endocrine Society clinical practice guideline. JCEM. 2010; 96(7):1911-30. Performed at: RN - [facility] [address] [id number] Gang Leader: Kisha Bustillos MD, Phone: [phone] Reference Guidelines*: Desirable: ........... < 200 [...] Rina dubliniensis Performed at: RN - [facility] [address] [id number] Gang Leader: Kisha Bustillos MD, Phone: [phone] 18 <10 SQUAMOUS EPITHELIAL CELLS/LPF 19 MODERATE [...] with a HCV Nucleic Acid Amplification test (168278). Performed at: RN - [facility] [address] [id number] Gang Leader: Kisha Bustillos MD, Phone: [phone] 43 c34.32 44 Note: Persistent reduction for [...] information may be found at [email or web address]. 59 [facility] FAX [phone] DR TRACY BARNES FAX [phone] 60 Instrument flagged sample for slide review. [...] found at [email or web address]. 63 STAT- TRACY BARNES [phone] PH [phone] FAX 64 S64.32 Z51.11 65 Note: Persistent reduction for 3 [...] correlation is suggested. 67 STAT-PORT DRAW CONCHIS AGUILAR MINING SPECULATOR [phone] PH [phone] 68 Instrument flagged sample for slide review. Less than 10% Bands seen, no other immature WBC's seen. Platelet estimate=NORMAL 69 Note: Persistent reduction for 3 months or more in an eGFR <60 mL/min/1.73 m2 defines CKD. Patients with eGFR values >/=60 mL/min/1.73 m2 may also have CKD if evidence of persistent proteinuria is present. The original MDRD equation for estimated GFR is not valid for patients less than 18 years of age. Additional information may be found at [email or web address]. 70 Z51.11 C34.32 71 Note: Persistent reduction [...] [email or web address]. 74 STAT PORT DRAW CONCHIS MENCHACAKINS MINING SPECULATOR [phone] PH [phone] FAX 75 C34.32 76 STAT TRACY BARNES [phone] PH [phone] FAX 77 Note: Persistent reduction for 3 months or more in an eGFR <60 mL/min/1.73 m2 defines CKD. Patients with eGFR values >/=60 mL/min/1.73 m2 may also have CKD if evidence of persistent proteinuria is present. The original MDRD equation for estimated GFR is not valid for patients less than 18 years of age. Additional information may be found at [email or web address]. 78 Note: Persistent reduction for 3 months or more in an eGFR <60 mL/min/1.73 m2 defines CKD. Patients with eGFR values >/=60 mL/min/1.73 m2 may also have CKD if evidence of persistent proteinuria is present. The original MDRD equation for estimated GFR is not valid for patients less than 18 years of age. Additional information may be found at [email or web address]. 79 STAT CONCHIS AGUILAR P [phone] F [phone] PORT DRAW 80 THERAPEUTIC INR RANGE: 2.0 [...] be found at [email or web address]. 83 LUNG MASS (J85.1) 84 NO ORGANISMS SEEN 85 NO WHITE BLOOD CELLS 86 NO GROWTH: FINAL REPORT 87 Fungus Stain Final report Result 1 MANDIE/Calcofluor preparation: no fungus observed 88 Fungus (Mycology) Culture Preliminary report Result Fungus (Mycology) Culture Final report Result: No yeast or mold isolated after 4 weeks Performed at: RN - [facility] [address] [id number] Gang Leader: Kisha Bustillos MD, Phone: [phone] . 89 LUNG MASS 90 THERAPEUTIC INR RANGE: 2.0 - 3.0 DVT, Pulmonary embolus, prophylaxis against venous thrombosis or systemic embolization in high risk patients. 2.5 - 3.5 Mechanical heart valves 91 CALC OF BILE DUCT 92 Note: [...] information may be found at [email or web address]. 93 LUNG MASS 94 BAL LLL Hard copy of report to be sent by mail Report may be viewed in Clinical Review, or in PCI under Medical Record Forms 95 Bal LLL Hard copy of report to be sent by mail Report may be viewed in Clinical Review, or in Pci under Medical Record Forms 96 Final report Result 1 MANDIE/Calcofluor preparation: no fungus observed 97 Fungus (Mycology) Culture Final report Result 1 No yeast or mold isolated after 4 weeks. Performed at: [facility] [address] [id number] Gang Leader: Kisha Bustillos MD, Phone: [phone] . 98 NO ORGANISMS SEEN RARE WHITE BLOOD CELLS 99 Acid Fast Culture Negative No acid fast bacilli isolated after 6 weeks Performed at: [facility] [address] [id number] Gang Leader: Kisha Bustillos MD, Phone: [phone] . 100 11:00 [facility] 06/21 [address]62 D38.1 RESCHEDULED 101 Is patient on heparin protocol? N Is patient on anticoagulants? Unknown 102 THERAPEUTIC INR RANGE: 2.0 - 3.0 DVT, Pulmonary embolus, prophylaxis against venous thrombosis or systemic embolization in high risk patients. 2.5 - 3.5 Mechanical heart valves 103 THERAPEUTIC INR RANGE: 2.0 - 3.0 DVT, Pulmonary embolus, prophylaxis against venous thrombosis or systemic embolization in high risk patients. 2.5 - 3.5 Mechanical heart valves 104 Instrument flagged sample for slide review. Less than 10% Bands seen, no other immature WBC's seen. RBC morphology essentially normal. Platelet estimate=MODERATE INCREASE 105 Z01.811, D38.1 106 <10 SQUAMOUS EPITHELIAL CELLS/LPF FEW GRAM POSITIVE COCCI 107 RESPIRATORY ROSHNI 108 BETA LACTAMASE NEGATIVE: PENICILLIN OR AMPICILLIN 109 BETA LACTAMASE POS: AMPICILLIN/SULBACTAM OR CEPHALOSPORIN. 110 Acid Fast Culture Negative No acid fast bacilli isolated after 6 weeks Performed at: [facility] [address] [id number] Gang Leader: Kisha Bustillos MD, Phone: [phone] . Procedures Date CPT Code Description Status Comment 06/26/2018 40485 EKG-Tracing And Report Completed 06/19/2018 44650 Irrigation Implanted Venous Completed Access Device For Drug System 06/19/2018 30769 Irrigation Implanted Venous Completed Access Device For Drug System 05/15/2018 78014 Collect Blood Specimen From Completed Completely Implant Venous Access Dev 04/17/2018 25961 Irrigation Implanted Venous Completed Access Device For Drug System 04/09/2018 Mammogram Completed Document: 04/09/18 - Screening Mammogram Bilateralbirads 2 02/20/2018 33847 Irrigation Implanted Venous Completed Access Device For Drug System 02/20/2018 28773 Collect Blood Specimen From Completed Completely Implant Venous Access Dev 01/28/2018 03271 Irrigation Implanted Venous Completed Access Device For Drug System 01/28/2018 55645 Irrigation Implanted Venous Completed Access Device For Drug System 12/04/2017 80217 Collect Blood Specimen From Completed Completely Implant Venous Access Dev 12/04/2017 45900 Irrigation Implanted Venous Completed Access Device For Drug System 12/04/2017 22629 Collect Blood Specimen From Completed Completely Implant Venous Access Dev 10/31/2017 32562 Irrigation Implanted Venous Completed Access Device For Drug System 10/31/2017 83219 Irrigation Implanted Venous Completed Access Device For Drug System 09/30/2017 50176 Collect Blood Specimen From Completed Completely Implant Venous Access Dev 09/30/2017 09331 Irrigation Implanted Venous Completed Access Device For Drug System 09/30/2017 90533 Collect Blood Specimen From Completed Completely Implant Venous Access Dev 09/05/2017 60339 Collect Blood Specimen From Completed Completely Implant Venous Access Dev 09/05/2017 92822 Collect Blood Specimen From Completed Completely Implant Venous Access Dev 09/05/2017 44564 Irrigation Implanted Venous Completed Access Device For Drug System 08/08/2017 39713 Irrigation Implanted Venous Completed Access Device For Drug System 08/08/2017 49962 Irrigation Implanted Venous Completed Access Device For Drug System 07/04/2017 95705 Irrigation Implanted Venous Completed Access Device For Drug System 07/04/2017 84672 Irrigation Implanted Venous Completed Access Device For Drug System 05/01/2017 69963 Ercp Removal Foreign Completed Body/Stent From Biliary/Pancreatic Duct 05/01/2017 10374 EGD With Biopsy Completed 04/04/2017 37642 Collect Blood Specimen From Completed Completely Implant Venous Access Dev 01/17/2017 71603 Insertion Tunneled Cent Completed Venous Cathr W Subcut Port 5 Yrs Or Oldr 01/15/2017 17196 Bronchospasm Provocation Completed Evaluation Multi Spirometric Determinati 01/15/2017 69467 Spirometry Completed 09/26/2016 85537 Ercp W/Trans-Endoscopic Completed Balloon Dilation Biliary/Pancreatic Duct 09/26/2016 56993 Ercp W/ Placement Completed Endoscopic Stent Biliary/Pancreatic Duct 08/14/2016 35091 Eye Exam New Patient Completed Comprehensive 08/06/2016 13024 Stress Test Interpre And Completed Report Only 08/06/2016 91122 Stress Test Physician Super Completed Only 08/06/2016 96815 Stress Test Physician Super Completed Only 08/06/2016 81601 Myocardial Imaging Completed Tomographic Multiple Study AT Rest Or Stress 07/31/2016 16975 EKG-Tracing And Report Completed 07/25/2016 48511 Echocardiogram Complete Completed 06/21/2016 12665 Bronchoscopy, with Completed transbronchial lung biopsyx, single lobe 06/21/2016 52986 Bronchoscopy;Diag./Flex Or Completed Rigid 06/20/2016 55395 EKG Interpretation And Completed Report Only 03/06/2016 Mammogram Completed 02/23/2016 30567 Bronchospasm Provocation Completed Evaluation Multi Spirometric Determinati 02/23/2016 43435 Spirometry Completed 11/25/2012 Mammogram Completed Encounters Type Date Location Provider CPT E/M Dx Office Visit 06/26/2018 3:00p [place] [address] I10 R07.9 F17.200 J44.9 E78.5 Office Visit 06/16/2018 1:30p Physical Medicine Symone Kirk M.D. 98849 B44.9 Infectious Disease C79.51 F17.210 R07.9 Z71.6 Office Visit 06/10/2018 2:45p [place] [address] C34.32 B44.9 Office Visit 05/15/2018 3:15p [place] [address] C34.32 C79.51 Office Visit 05/05/2018 2:15p Physical Medicine Symone Kirk M.D. 18218 R07.9 Infectious Disease B44.9 C34.32 F17.210 Office Visit 05/02/2018 1:45p [place] [address] C34.32 B44.9 R07.9 G89.3 Office Visit 03/26/2018 2:15p Physical [facility] Symone Ramirez M.D. 41204 B44.9 Infectious Disease C34.32 F17.210 I10 Office Visit 03/14/2018 11:30a Family Medicine Suha Ferrari M.D. 23228 I10 E78.5 Z12.31 Z13.820 Office Visit 02/27/2018 9:30a [place] [address] B44.9 R05 C34.32 Office Visit 02/19/2018 2:15p Physical [facility] & Symone Ramirez M.D. 03109 B44.9 Infectious Disease R05 I10 F17.210 R07.9 C34.32 Office Visit 02/13/2018 11:30[place] [address] J44.9 C34.32 B44.9 F17.210 Z71.6 Office Visit 01/28/2018 10:30a [place] [address] B44.9 D64.9 R91.1 R05 Office Visit 01/13/2018 1:15p Physical [facility] & Symone Ramirez M.D. 33534 B44.9 Infectious Disease C34.32 J44.9 Office Visit 01/07/2018 1:00p [place] [address] C34.32 B44.9 D64.9 Office Visit 12/16/2017 9:30a [place] [address] C34.32 J44.9 D64.9 F41.9 B44.9 Office Visit 11/28/2017 1:45p [place] [address] C34.32 J44.9 D64.9 F41.9 R91.1 Office Visit 11/19/2017 10:30a [place] [address] C34.32 J44.9 D64.9 G89.3 F41.9 Office Visit 09/30/2017 10:30[place] [address] J44.9 R05 Office Visit 08/28/2017 11:00a [facility] Suha Ferrari M.D. 91286 I10 F17.210 Z71.6 Office Visit 08/05/2017 1:30[place] [address] J44.9 C34.32 F17.210 Z71.6 Office Visit 07/01/2017 10:30a [place] [address] C34.32 D70.1 R11.2 Office Visit 06/17/2017 11:00a [place] [address] C34.32 G62.0 D70.1 R11.2 D64.81 Office Visit 06/04/2017 10:00a Infusion Center Conchis Aguilar MINING SPECULATOR 61498 C34.32 G62.0 Office Visit 05/28/2017 8:30a Infusion Center Conchis Aguilar, MINING SPECULATOR 67847 Z51.11 C34.32 G62.0 E83.42 E87.6 D70.1 Office Visit 05/27/2017 9:45a [place] [address] C34.32 D70.1 R11.2 D64.81 G62.0 G89.3 Office Visit 05/13/2017 10:45a [place] [address] C34.32 D64.81 M54.6 D70.1 R11.2 G62.0 Office Visit 05/06/2017 10:30[place] [address] C34.32 D64.81 M54.6 Office Visit 04/24/2017 2:00p [facility] [place] Suha Smallwood M.D. 73770 J44.9 C34.32 E78.5 I10 Office Visit 04/18/2017 9:30a [place] [address] C34.32 D64.81 M54.6 D70.1 Office Visit 04/04/2017 9:45a [place]cology [place] [address] C34.32 C34.32 D64.81 D64.81 R11.2 R11.2 M54.6 M54.6 M25.472 Office Visit 03/28/2017 3:15p [place] [address] K80.50 R13.10 Office Visit 03/21/2017 9:45a [place] [address] C34.32 D64.81 R11.2 M54.6 R06.02 D70.1 T45.1x5D E83.42 Office Visit 03/14/2017 9:45a [place]cology [place] [address] C34.32 R06.02 D64.9 R11.2 M54.6 R19.7 Office Visit 03/07/2017 11:00a [place] [address] Z51.11 C34.32 D64.81 E87.6 Office Visit 03/05/2017 11:30a [place] [address] C34.32 D64.9 R11.2 M54.6 R19.7 Office Visit 02/28/2017 10:30a [place] [address] Z51.11 C34.32 D64.81 E86.0 J06.9 E87.6 Office Visit 02/25/2017 9:45a [place] [address] C34.32 J06.9 D64.9 R11.2 M54.6 L29.8 Office Visit 02/20/2017 10:30a [place] [address] Z51.11 C34.32 D64.9 Office Visit 02/19/2017 2:00p [place] [address] C34.32 R11.2 D64.9 D70.1 T45.1x5D Office Visit 02/13/2017 10:00a [place] [address] Z51.11 C34.32 R11.2 R19.7 Office Visit 02/11/2017 9:30a [place] [address] C34.32 M54.6 D64.9 R11.2 L29.8 Office Visit 02/06/2017 10:30a Oncology Office Conchis Aguilar, MINING SPECULATOR 55819 Z51.11 C34.32 R11.2 E83.42 Office Visit 02/04/2017 9:30a [place] [address] C34.32 R11.2 M54.6 D64.9 L29.8 Office Visit 01/31/2017 1:30[place] [address] J44.9 C34.32 F17.200 Z71.6 R07.9 Office Visit 01/30/2017 9:00a Oncology Office Conchis Aguilar, MINING SPECULATOR 72088 Z51.11 C34.32 R11.2 R10.11 Office Visit 01/28/2017 9:45a [place] [address] C34.32 J44.9 R11.2 F17.200 R05 Office Visit 01/23/2017 9:30a Oncology Office Conchis Aguilar, MINING SPECULATOR 22443 Z51.11 C34.32 R11.2 E83.42 R05 Office Visit 01/21/2017 9:45a [place] [address] C34.32 Z71.6 J44.9 M54.6 Office Visit 01/16/2017 10:00a Surgical Office Gaurav Mercer MD,FACS 56850 C34.32 Office Visit 01/14/2017 1:45p [place] [address] C34.32 Z71.6 J44.9 R11.2 M54.6 D70.1 Office Visit 12/26/2016 1:00p [place] [address] C34.32 J85.1 J44.9 Z71.6 F41.9 Office Visit 12/26/2016 2:45[place] [address] J44.9 C34.32 F17.210 Z71.6 Office Visit 09/20/2016 1:15[place] [address] K80.51 Office Visit 09/04/2016 9:30[place] [address] K80.51 Office Visit 08/21/2016 1:30[place] [address] J44.9 J85.1 F17.210 Z71.6 Office Visit 07/31/2016 1:30p [place] [address] R07.9 F17.210 R94.31 Z71.6 Office Visit 07/30/2016 1:15p Physical Medicine & Symone Ramirez M.D. 11854 J85.1 Infectious Disease A49.2 F17.210 J44.9 R19.7 Office Visit 07/19/2016 2:45p [place] [address] J85.1 F17.210 Z71.6 J44.9 Office Visit 07/17/2016 3:30[place] [address] R19.7 R93.3 Z71.6 F17.200 Office Visit 06/13/2016 1:00p [place] [address] D38.1 J44.9 Z01.811 F17.210 Z71.6 Plan of Care Future Appointment(s):09/03/2018 1:15 pm - Kaitlin Escobar MD at Cardiology Zzctgc2707/17/2018 2:00 pm - Oncology Nurse at Oncology Esoihj0912/18/2018 3:30 pm - Jad Blanco MD at Xmvkaovevsg28/10/2018 3:30 pm - Symone Ramirez M.D. at Physical Medicine & Infectious Louhgsx7708/11/2018 10:30 am - Tracy Barnes DO at Oncology Crampq7309/17/2018 1:30 pm - Janay Galarza MD at [facility]06/26/2018 - Page [place], PAI10 Essential (primary) hypertensionComments:I [...]
[2018-07-23 18:21] VITALS: BP 141/81
--- NOTE | 2018-07-23 18:44 | UC ---
General HPI - HPI Summary HPI Summary: Patient states that she accidentally tripped and fell 2 days ago. She is complaining of pain and swelling to her right hand especially the thumb. She reached out to brace the fall with her right hand causing injury. She notes a short time later she developed some soreness in the area of her right armpit and chest as well which she attributes to bracing herself with her right arm during the fall. She admits to being short of breath but reports this is her baseline from her COPD, asthma and lung cancer. - History of Current Complaint Chief Complaint: UCUpperExtremity Stated Complaint: RIGHT HAND INJURY S/P FALL Time Seen by Provider: 07/23/18 18:17 Hx Obtained From: Patient Hx Last Menstrual Period: N/A Pain Intensity: 2 Associated Signs & Symptoms: Positive: Cough - Chronic, SOB - Chronic and unchanged - Allergy/Home Medications Allergies/Adverse Reactions: Allergies Allergy/AdvReac Type Severity Reaction Status Date / Time codeine AdvReac Vomiting Verified 07/23/18 18:22 muscle relaxer Allergy Pain Uncoded 07/23/18 18:22 Home Medications: Home Medications Benzonatate CAP* [Tessalon 100 MG CAP*] 100 mg PO TID 07/23/18 [History Confirmed 07/23/18] Budesonide Flexhaler 180 (NF) [Pulmicort Flexhaler 180 mcg/act (NF)] 1,801 inh IN BID 07/23/18 [History Confirmed 07/23/18] Itraconazole 2 tab PO BID 07/23/18 [History Confirmed 07/23/18] Umeclidin/Vilant 62.5 MDI(NF) [ANORO 62.5/25 Ellipta DEVICE (NF)] 1 inh INH DAILY 07/23/18 [History Confirmed 07/23/18] oxyCODONE TAB* [Roxycodone TAB 5 mg*] 5 mg PO TID PRN 07/23/18 [History Confirmed 07/23/18] PMH/Surg Hx/FS Hx/Imm Hx - Additional Past Medical History Additional PMH: Lung cancer Cardiovascular History: Hypertension Respiratory History: COPD, Asthma - Surgical History Surgical History: Yes Surgery Procedure, Year, and Place: cholecystectomy 1993; left toe - Family History Known Family History: Positive: Unknown - Social History Occupation: Retired Lives: With Family Alcohol Use: None Substance Use Type: Excessive Caffeine Smoking Status (MU): Heavy Every Day Tobacco Smoker Type: Cigarettes Amount Used/How Often: 1/2 ppd Length of Time of Smoking/Using Tobacco: since age 19 - Immunization History Vaccination Up to Date: Yes Review of Systems Constitutional: Negative Skin: Negative Eyes: Negative ENT: Negative Respiratory: Shortness Of Breath - Chronic, Cough - chronic Cardiovascular: Negative Gastrointestinal: Negative Genitourinary: Negative Motor: Negative Neurovascular: Negative Musculoskeletal: Other: - Right hand pain and swelling and soreness to right anterior axilla and chest wall Neurological: Negative Psychological: Negative Is Patient Immunocompromised?: No All Other Systems Reviewed And Are Negative: Yes Physical Exam Triage Information Reviewed: Yes Appearance: Thin Vital Signs: Initial Vital Signs Temp 97.8 F 07/23/18 18:10 Pulse 97 07/23/18 18:10 Resp 21 07/23/18 18:10 BP 141/81 07/23/18 18:10 Pulse Ox 100 07/23/18 18:10 Vital Signs Reviewed: Yes Eyes: Positive: Conjunctiva Clear ENT: Positive: Normal ENT inspection Neck: Positive: Supple, Nontender, No Lymphadenopathy Respiratory: Positive: Lungs clear, Respiratory distress, Decreased breath sounds, Other: - Patient is tender to palpation to her right upper chest over the pectoral muscle and anterior eczema. There is no crepitation or instability. Cardiovascular: Positive: RRR, No Murmur Abdomen Description: Positive: Nontender, No Organomegaly, Soft Bowel Sounds: Positive: Present Musculoskeletal: Positive: Other: - Head is normocephalic and atraumatic C- spine is nontender. Right upper extremity: Shoulder and elbow are without deformity or tenderness. The wrist is nontender. The hand is mildly swollen and has some generalized tenderness along with tenderness to the base of the thumb. The hand has full sensorivascular motor function and there is no snuffbox tenderness. Neurological: Positive: Alert Psychological: Positive: Age Appropriate Behavior Skin Exam: Normal Skin: Negative: rashes Diagnostics - Radiology No standard instances Radiology Interpretation Completed By: ED Physician - wet read=fx base 1st metacarpal Course/Dx - Course Course Of Treatment: Chest x-ray declined by patient. I think the discomfort to her right upper anterior chest and axillary region is consistent with musculoskeletal pain but I have very low concern for fracture. Patient does agree to follow up with her primary care for any change or worsening of this discomfort. - Differential Dx - Multi-Symptom Provider Diagnoses: R anterior chest wall/axillary strain. non displaced fx 1st metacarpal R hand Discharge - Sign-Out/Discharge Documenting (check all that apply): Patient Departure All imaging exams completed and their final reports reviewed: No - Discharge Plan Condition: Stable Disposition: HOME Patient Education Materials: Thumb Fracture (ED), Chest Wall Pain (ED) Referrals: Donnie Keita MD [Medical Doctor] - As Soon As Possible Additional Instructions: FOLLOW UP DR KEITA FOR THE BROKEN BONE. FOLLOW UP DR MACKENZIE FOR THE AXILLA/CHEST WALL STRAIN. SPLINT AT ALL TIMES UNTIL CLEARED. - Billing Disposition and Condition Condition: STABLE Disposition: Home
--- NOTE | 2018-07-24 05:42 | RAD ---
INDICATION: RIGHT hand first metacarpal region pain post fall 2 days ago. COMPARISON: No relevant prior exams available on the [facility]. TECHNIQUE: AP, lateral, and oblique views RIGHT hand. REPORT: Bone density appears decreased throughout. Intra-articular fracture at the base of the first metacarpal with significant resulting articular surface incongruity due to distal displacement of the medial fracture fragment. Overlying soft tissue swelling. Negative for additional fracture or articular malalignment. IMPRESSION: #. Intra-articular fracture base of the first metacarpal with significant displacement. R0
--- NOTE | 2018-07-24 08:10 | UC ---
- EKG/XRAY/CT Xray Comments: wet read correct Discharge - Sign-Out/Discharge Documenting (check all that apply): Post-Discharge Follow Up All imaging exams completed and their final reports reviewed: Yes - Discharge Plan Condition: Stable Disposition: HOME Patient Education Materials: Thumb Fracture (ED), Chest Wall Pain (ED) Referrals: Donnie Keita MD [Medical Doctor] - As Soon As Possible Additional Instructions: FOLLOW UP DR KEITA FOR THE BROKEN BONE. FOLLOW UP DR MACKENZIE FOR THE AXILLA/CHEST WALL STRAIN. SPLINT AT ALL TIMES UNTIL CLEARED. - Billing Disposition and Condition Condition: STABLE Disposition: Home
== END 2018-07-23 19:13 | disposition home or self-care (01) ==
LOC: UCCORT 16:36
DX: S62.231A Other displaced fracture of base of first metacarpal bone, right hand, initial encounter for closed fracture (principal); S29.012A Strain of muscle and tendon of back wall of thorax, initial encounter; S46.811A Strain of other muscles, fascia and tendons at shoulder and upper arm level, right arm, initial encounter; W18.40XA Slipping, tripping and stumbling without falling, unspecified, initial encounter; Y92.9 Unspecified place or not applicable; Z88.5 Allergy status to narcotic agent; I10 Essential (primary) hypertension; F17.210 Nicotine dependence, cigarettes, uncomplicated
CPT/HCPCS: 99212; G0463

== ENCOUNTER 2019-04-29 15:30 | Emergency (ER) | payer MEDICARE, MEDICAID ==
[2019-04-29 16:12] VITALS: BP 101/84
--- NOTE | 2019-04-29 16:23 | UC ---
Respiratory Complaint HPI - HPI Summary HPI Summary: 69 yr old Wf w/ PMHx of lung ca, recent PE, COPD and recent aspergillosis w/ 2 days of significant dry cough and severe fatigue. she recently completed 1 yr of flucanzole for aspergillosis. She had a PE ~ 2mo ago but ran out of eliquis several days ago, not sure exactly when. there was confusion with [facility] of [facility] she was released from [facility]. She states it is waiting for her at [facility]. -she has very dry cough which is unsual for her. very tight. recent PE. denies CP -states her HR is normal in 120s but fastre than ususal for her. follows w/ cardiology -denies fevers/chills. -here w/ her dtr Mackenzie who forced her to come here. - History of Current Complaint Chief Complaint: UCGeneralIllness Stated Complaint: COUGH Time Seen by Provider: 04/29/19 16:15 Hx Last Menstrual Period: N/A Pain Intensity: 0 - Allergies/Home Medications Allergies/Adverse Reactions: Allergies Allergy/AdvReac Type Severity Reaction Status Date / Time codeine AdvReac Vomiting Verified 04/29/19 16:12 muscle relaxer Allergy Pain Uncoded 04/29/19 16:12 PMH/Surg Hx/FS Hx/Imm Hx Previously Healthy: No Cardiovascular History: Hypertension Respiratory History: COPD, Pulmonary Embolism, Other - lung ca - Surgical History Surgical History: Yes Surgery Procedure, Year, and Place: cholecystectomy 1993; left toe - Family History Known Family History: Positive: Unknown - Social History Alcohol Use: None Substance Use Type: Excessive Caffeine Smoking Status (MU): Former Smoker Type: Cigarettes Amount Used/How Often: 1/2 ppd Length of Time of Smoking/Using Tobacco: since age 19 When Did the Patient Quit Smoking/Using Tobacco: 01/2019 - Immunization History Vaccination Up to Date: Yes Review of Systems All Other Systems Reviewed And Are Negative: Yes Constitutional: Positive: Fatigue Skin: Positive: Negative Eyes: Positive: Negative ENT: Positive: Negative Respiratory: Positive: Shortness Of Breath, Cough Cardiovascular: Positive: Other - tachy Gastrointestinal: Positive: Diarrhea Genitourinary: Positive: Negative Motor: Positive: Negative Neurovascular: Positive: Negative Musculoskeletal: Positive: Negative Neurological: Positive: Negative Psychological: Positive: Negative Is Patient Immunocompromised?: No Physical Exam Appearance: Ill-Appearing, Thin, Cachectic - appears chronically ill. ashen color. speaks full sentences. very pleasant. Vital Signs: Initial Vital Signs Temp 98.3 F 04/29/19 15:59 Pulse 133 04/29/19 15:59 Resp 20 04/29/19 15:59 BP 101/84 04/29/19 15:59 Pulse Ox 98 04/29/19 15:59 Vital Signs Reviewed: Yes Eye Exam: Normal ENT: Positive: Pharynx normal, TMs normal Neck exam: Normal Neck: Positive: Supple, Nontender, No Lymphadenopathy Respiratory: Positive: Decreased breath sounds - significant dcerease b/l. poor aeration. Negative: Crackles, Rhonchi, Stridor, Wheezing Cardiovascular: Positive: Tachycardia Abdomen Description: Positive: Nontender, Soft Musculoskeletal Exam: Normal Neurological Exam: Normal Psychological Exam: Normal Skin Exam: Normal Respiratory Course/Dx - Course Course Of Treatment: chronically ill appearing woman w/ signifcant resp hx w/ recent PE less than 3 mo ago (w/o eliquis for several days), severe fatigue and cough x 2 days also w / tachycardia of 133 which is above her baseline. high risk of PE progressing since off eliquis. They agree to go to ER for furthe evaluation. declines ambulance. Dtr is very agreeable to taking her there as she thought this would be the case. - Differential Dx/Diagnosis Differential Diagnosis/HQI/PQRI: Bronchitis, Laryngitis, Lower Resp Infection Provider Diagnosis: Cough, Pulmonary embolus Discharge - Sign-Out/Discharge Documenting (check all that apply): Patient Departure All imaging exams completed and their final reports reviewed: No Studies - Discharge Plan Condition: Fair Disposition: TRANS HIGHER LVL OF CARE FAC Referrals: Roxanna Sun NP [Primary Care Provider] - 3 Days Additional Instructions: We talked about the importance of going directly to the hospital bc of the ocnecrn of several serious medicl conditions including missing several doses of your eliquis for your recent diagnosis of PE. The very high heart rate of 133 is very concerning as well. Further evaluation with a CT is likely needed. Go directly to the ER without stopping anywhere else. - Billing Disposition and Condition Condition: FAIR Disposition: Trans Higher Lvl of Care Fac
== END 2019-04-29 16:30 | disposition short-term general hospital (02) ==
LOC: UCCORT 15:30
DX: R05 Cough (principal); I26.99 Other pulmonary embolism without acute cor pulmonale; Z86.711 Personal history of pulmonary embolism; Z85.118 Personal history of other malignant neoplasm of bronchus and lung; I10 Essential (primary) hypertension; Z87.891 Personal history of nicotine dependence
CPT/HCPCS: 99212; G0463